=== PATIENT | female | born 1955 | race Caucasian/White ===

== ENCOUNTER 2021-04-16 11:11 | Inpatient (IN) ==
[2021-04-16] MEDS ORDERED: SODIUM CHLORIDE 0.9% 1000ML 1,000 ML IV ONE (12:21)
[2021-04-16] MEDS ORDERED: HYDROcodone/HOMATROPINE SYRUP 5MG/1.5MG 5ML UDP PO STA ×2 (12:21→14:26)
--- NOTE | 2021-04-16 12:24 | Emergency Department Note ---
Impression & Plan COVID-19, Persistent cough, Adult failure to thrive, Abnormal weight loss, Abnormal ECG ED Provider Note Name: ZACHARY ARROYO Age: 65 Sex: F Arrives Via: Walk-In Informant: Patient, ED Provider: Jeyson Allen MD Chief Complaint: Weakness Impression: As per impressions above Medical Decision Makin-year-old female with a history of follicular lymphoma and a mass on her stomach who was on chemotherapy until the end of February. She developed Covid at the beginning of March and was ill for the last 4 weeks. She did try a round of steroids and inhaler without improvement. She has been having worsening weakness to the point of inability to ambulate around her house. She has 15 pounds weight loss in the last 2 weeks. She looks dehydrated and quite weak on arrival. EKG with diffuse T wave inversions and some ST depressions. T here is also a right bundle branch block. Unable to tell if this is new or not. Fortunately troponin is negative thus is unlikely an acute myocarditis. She has a recent Covid infection, known cancer, and a brother with DVTs thus it was felt CT PE study was indicated without waiting on dimer. CT reveals diffuse viral infiltrates without PE. Patient was given 1 L IV fluid and some Hycodan which she does appear improved with but is still too weak to get up and move around. Cough did start coming back this further Hycodan given given the persistent cough I furthermore opted to give her a dose of Decadron Sami note that she is not hypoxic at this time. Labs are unremarkable and patient is stable. Patient is unfortunately too weak to go home at this time and given current findings I think it is reasonable of the hospitalist evaluate her for further evaluation and management. Prior Medical Record and Triage/Nursing Notes reviewed by Me Additional history obtained from and chart Differentials:Infection, dehydration, metabolic abnormality, hypo/hyperglycemia, electrolyte disturbance, anemia, hypoxia, cardiac sources, intracerebral event, toxicologic, neurologic, as well as other pathologies. Vital Signs: reviewed and remarkable for mild hypotension Interventions: 1 L normal saline IV, Hycodan 5 mL p.o. x2, Decadron 10 mg IV Labs:Reviewed and remarkable for no significant abnormalities Imaging:CT PE study of the chest reveals diffuse viral findings, no PE, no dissection see report of radiologist as below EKG:Per My Interpretation: Indication shortness of breath: NSR 84 bpm, qtc 418. No Ectopy. No Ischemia. No previous for comparison. Consults:hospitalist Plan: Disposition:Hospitalization. Condition: fair History of Present Illness:65-year-old female with known follicular lymphoma and a mass on her stomach arrives for evaluation of generalized illness. Patient notes she was diagnosed with COVID on March 22 and after oh 2-week. Was started on a course of steroids and an inhaler. She notes that she has had persistent shortness of breath, weakness, fatigue over the last month without i mprovement with medications. Over the last few days patient has gotten to the point where she is so weak she cannot even get around the house frequently during falls. She has lost up to 15 pounds in the last few days/weeks as well. She notes she cannot accomplish anything at home and just feels too tired. Any exertion makes symptoms worse, rest seems to make them slightly better. She denies any syncope, chest pain, headache, neck pain, back pain, abdominal pain, nausea/vomiting or other acute findings/symptoms. She denies any recent swelling in her legs nor calf pain. Her notes that she has been severely weak and just cannot manage to do well at home right now. ROS: See above HPI for pertinent positives & negatives. A total of 10 systems reviewed and were otherwise negative. Past Medical History:See Below Past Surgical History:See Below Family History:See Below Social History:See Below Home Medications:See Below Allergies:See Below Vitals:Blood Pressure: 123/50, Pulse 60, RR 20, T 36.8C, O2 94% on RA Physical Exam: GENERAL: Patient is tired/unwell/dehydrated appearing and in mild distress. EYES: No scleral icterus, unremarkable pupils. ENT: Mucous membranes dry, no nasal congestion. NECK: No masses appreciated, nomeningismus, trachea is midline. RESPIRATORY: dyspnea with diffuse crackles all lung fileds CARDIOVASCULAR: Regular rate and rhythm.No murmurs, rubs, gallops appreciated. GASTROINTESTINAL: Abdomen soft, non-tender, no peritonitis.Bowel sounds positive.No masses appreciated. BACK: No midline tenderness, no CVA tenderness EXTREMITIES: Normal motion all extremities, no cyanosis, no edema. NEUROLOGIC: Alert and oriented, no acute motor or sensory deficits, no focal weakness, cranial nerves grossly intact. SKIN: No rash, no jaundice, no diaphoresis. PSYCH: Appropriate GCS: 15 ED Course: Times/Reassessments: Patient appears moderately better with some IV fluids though still quite weak. Her cough improves with Hycodan. Jeyson Allen MD Past Med/Surg History Medical History Anxiety B-cell lymphoma of intra-abdominal lymph nodes Follicular lymphoma History of colon polyps Migraine Osteoarthritis Port-A-Cath in place (02/24/19) Insertion of Infusaport Left Internal Jugular Dr. De La Torre 02/24/19 Surgical History History of colonoscopy History of D&C History of esophagogastroduodenoscopy (EGD) History of tonsillectomy History of tubal ligation History of wisdom tooth extraction Hx of lymph node biopsy x 2 Family History Father Hypertension Heart disease Mother Heart disease Grandmother (Maternal) Colorectal cancer Grandfather (Maternal) Colorectal cancer Social History Smoking Status: Smoker, status unknown Second Hand Exposure: Yes (as a child); Hx Alcohol Use: No Hx Substance Use: No Preferred Language: Telugu Communication Ability: Effective Land Appraiser Required: No Beliefs That Will Affect Care: None marital status: Current Living Situation: Spouse current occupational status: employed 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 Other Information That Helps Us Care for You: No Feels Safe at Home: Yes Safety Concerns: Feels Safe At This Time Assistive Devices: None Allergies Allergies Allergy/AdvReac Type Severity Reaction Status Date / Time No Known Allergies Allergy Verified 04/16/21 12:29 Home Meds Home Medications Medication Instructions Recorded Confirmed clonazepam 0.5 mg tablet (Klonopin) 0.5 mg PO QPM tab 01/06/19 04/16/21 meloxicam submicronized 10 mg 10 mg PO QAM 01/06/19 04/16/21 capsule (Vivlodex) eletriptan 20 mg tablet (Relpax) 20 mg PO Q2H PRN 01/07/19 04/16/21 sumatriptan succinate 25 mg tablet 25 mg PO Q2H PRN 01/07/19 04/16/21 niacin 100 mg tablet 100 mg PO DAILY 02/24/19 04/16/21 cholecalciferol (vitamin D3) 25 25 mcg PO QAM 09/27/19 04/16/21 mcg (1,000 unit) tablet (Vitamin D3) loratadine 10 mg tablet 10 mg PO QAM 09/27/19 04/16/21 multivitamin 1 tab PO QAM 09/27/19 04/16/21 fluoxetine 40 mg capsule 40 mg PO QAM 04/16/21 04/16/21 Results & Data (ED) Vital Signs Vital Signs - 24 hr 04/16/21 15:14 04/16/21 15:33 Pulse Rate [Apical] 75 73 Pulse Rhythm [Apical] Regular Regular Respiratory Rate 17 15 Respiratory Depth Normal Normal Blood Pressure [Left Arm] 100/70 109/63 Blood Pressure Mean [Left Arm] 80 78 Pulse Oximetry 99 93 Oxygen Delivery Method Room Air Nasal Cannula Oxygen Flow Rate 2 Laboratory Data Result diagrams: 04/17/21 05:44 04/17/21 05:44 Lab Results 04/16/21 04/16/21 04/16/21 Range/Units 11:50 11:50 11:50 WBC 3.26 L (4.8-10.8) K/uL RBC 3.44 L (4.2-5.4) M/uL Hgb 11.9 L (12.0-16.0) g/dL Hct 33.5 L (37-47) % MCV 97.4 (80-100) fL MCH 34.6 H (25-34) pg MCHC 35.5 (32-36) g/dL RDW Std Deviation 40.9 (36.4-46.3) fL RDW Coeff of [place] 11.5 (11.5-14.5) % Plt Count 142 (130-400) K/uL MPV 9.6 (7.4-10.4) fL Immature Gran % (Auto) 0.3 % Neut % (Auto) 86.8 % Lymph % (Auto) 7.1 % Robertson % (Auto) 5.8 % Eos % (Auto) 0.0 % Baso % (Auto) 0.0 % Neut # (Auto) 2.83 (1.4-6.5) K/uL Lymph # (Auto) 0.23 L (1.2-3.4) K/uL Robertson # (Auto) 0.19 (0.11-0.59) K/uL Eos # (Auto) 0.00 (0-0.5) K/uL Baso # (Auto) 0.00 (0-0.2) K/uL Immature Gran # (Auto) 0.01 (0.00-0.02) K/uL Sodium 133 L (136-145) mmol/L Potassium 3.6 (3.5-5.1) mmol/L Chloride 99 (98-107) mmol/L Carbon Dioxide 26 (21-32) mmol/L Anion Gap 8 (3-11) BUN 16 (6-23) mg/dl Creatinine 0.84 (0.6-1.2) mg/dl Est Cr Clr Drug Dosing 56.0 ml/min Est GFR ( Amer) 85.1 ml/min Est GFR (Non-Af Amer) 73.4 ml/min BUN/Creatinine Ratio 19.0 (10-20) Glucose 94 (70-99(Fasting)) mg/dl Calcium 9.1 (8.5-10.1) mg/dl Magnesium 2.0 (1.7-2.4) mg/dl Total Bilirubin 0.4 (0.2-1.0) mg/dl Direct Bilirubin 0.1 (0-0.2) mg/dl AST 27 (13-39) U/L ALT 28 (7-52) U/L Alkaline Phosphatase 55 (34-104) U/L Total Creatine Kinase 15 L (26-192) U/L Troponin I < 0.03 (0-0.04) ng/ml C-Reactive Protein (0-0.5) mg/dl B-Natriuretic Peptide (0-100) pg/ml Total Protein 6.2 (6.0-8.3) gm/dl Albumin 3.5 (3.4-5.0) gm/dl Procalcitonin (0-0.5) ng/ml TSH 0.977 (0.300-4.500) uIu/ml 04/16/21 04/16/21 04/16/21 Range/Units 11:50 11:50 15:40 WBC (4.8-10.8) K/uL RBC (4.2-5.4) M/uL Hgb (12.0-16.0) g/dL Hct (37-47) % MCV (80-100) fL MCH (25-34) pg MCHC (32-36) g/dL RDW Std Deviation (36.4-46.3) fL RDW Coeff of [place] (11.5-14.5) % Plt Count (130-400) K/uL MPV (7.4-10.4) fL Immature Gran % (Auto) % Neut % (Auto) % Lymph % (Auto) % Robertson % (Auto) % Eos % (Auto) % Baso % (Auto) % Neut # (Auto) (1.4-6.5) K/uL Lymph # (Auto) (1.2-3.4) K/uL Robertson # (Auto) (0.11-0.59) K/uL Eos # (Auto) (0-0.5) K/uL Baso # (Auto) (0-0.2) K/uL Immature Gran # (Auto) (0.00-0.02) K/uL Sodium (136-145) mmol/L Potassium (3.5-5.1) mmol/L Chloride (98-107) mmol/L Carbon Dioxide (21-32) mmol/L Anion Gap (3-11) BUN (6-23) mg/dl Creatinine (0.6-1.2) mg/dl Est Cr Clr Drug Dosing ml/min Est GFR ( Amer) ml/min Est GFR (Non-Af Amer) ml/min BUN/Creatinine Ratio (10-20) Glucose (70-99(Fasting)) mg/dl Calcium (8.5-10.1) mg/dl Magnesium (1.7-2.4) mg/dl Total Bilirubin (0.2-1.0) mg/dl Direct Bilirubin (0-0.2) mg/dl AST (13-39) U/L ALT (7-52) U/L Alkaline Phosphatase (34-104) U/L Total Creatine Kinase (26-192) U/L Troponin I (0-0.04) ng/ml C-Reactive Protein 3.65 H (0-0.5) mg/dl B-Natriuretic Peptide 45 (0-100) pg/ml Total Protein (6.0-8.3) gm/dl Albumin (3.4-5.0) gm/dl Procalcitonin < 0.05 (0-0.5) ng/ml TSH (0.300-4.500) uIu/ml Administered Medications Enoxaparin Sodium (Enoxaparin Inj 40 Mg/0.4 Ml Syr) 40 mg SQ Q24H [facility] Stop: 05/16/21 19:59 Last Admin: 04/16/21 20:59 Dose: 40 mg Documented by: [id number] Fluoxetine HCl (Fluoxetine Hcl 20 Mg Cap) 40 mg PO [facility] Stop: 05/17/21 08:59 Last Admin: 04/17/21 08:41 Dose: 40 mg Documented by: [id number] Loratadine (Loratadine 10 Mg Tab) 10 mg PO [facility] Stop: 05/17/21 08:59 Last Admin: 04/17/21 08:41 Dose: 10 mg Documented by: [id number] Meloxicam (Meloxicam 7.5 Mg Tab) 7.5 mg PO [facility] Stop: 05/17/21 08:59 Last Admin: 04/17/21 11:09 Dose: 7.5 mg Documented by: [id number] Vitamin D (Cholecalciferol 1,000 Units 25 Mcg Tab) 1,000 units PO [facility] Stop: 05/17/21 08:59 Last Admin: 04/17/21 08:41 Dose: 1,000 units Documented by: [id number] Discontinued Medications Dexamethasone Sodium Phosphate (DexamethasonePf 10 Mg/Ml Vial) 10 mg IV NOW ONE Stop: 04/16/21 14:44 Last Admin: 04/16/21 14:59 Dose: 10 mg Documented by: [id number] Hydrocodone Bit/Homatropine Methylb (Hydrocodone/Homatropine Syrup 5mg/1.5mg 5ml Udp) 5 ml PO NOW [facility] Stop: 04/16/21 12:22 Last Admin: 04/16/21 12:35 Dose: 5 ml Documented by: [id number] Hydrocodone Bit/Homatropine Methylb (Hydrocodone/Homatropine Syrup 5mg/1.5mg 5ml Udp) 5 ml PO NOW STA Stop: 04/16/21 14:27 Last Admin: 04/16/21 14:40 Dose: 5 ml Documented by: [id number] Sodium Chloride (Nss 1000ml) 1,000 mls @ 999 mls/hr IV .Q1H1M ONE Stop: 04/16/21 13:21 Last Infusion: 04/16/21 14:08 Dose: 0 mls/hr Documented by: [id number] Admin: 04/16/21 12:35 Dose: 999 mls/hr Documented by: [id number] Ioversol (Optiray 320 125ml) 120 ml IV ONCE ONE Stop: 04/16/21 14:06 Last Admin: 04/16/21 13:59 Dose: 120 ml Documented by: [id number] Ioversol (Optiray 320 100ml) 100 ml IV ONCE ONE Stop: 04/17/21 00:10 Last Admin: 04/17/21 00:09 Dose: 93 ml Documented by: [id number] Imaging Data Radiologist's Impression: Chest CTA 04/16/21 12:21 CT ANGIOGRAPHY OF THE CHEST, PULMONARY EMBOLUS PROTOCOL CLINICAL HISTORY: PE eval. post covid. Lymphoma, +Fam History DVT COMPARISON STUDY: Chest CT December 20, 2020. TECHNIQUE: Following IV administration of 120 mL of Optiray, helical axial images of the chest were obtained utilizing the pulmonary embolus protocol. Maximal intensity projections and sagittal and coronal reformats were viewed on an independent 3D workstation. IV contrast was administered without complication. Automated exposure control was utilized for the study. A dose lowering technique was utilized adhering to the principles of ALARA. CT DOSE: 233.82 mGycm FINDINGS: Left internal jugular [id number] is in place. No pulmonary emboli are identified. There is no pericardial effusion. Size of the heart is at the upper limits of normal. No enlarged axillary, mediastinal or hilar lymph nodes a re present. Central airways are patent. No pneumothorax or pleural effusion is noted. Moderate multifocal groundglass opacities throughout the lungs are present. Visualized portions of the upper abdomen are unremarkable. Bony thorax is unremarkable as well. IMPRESSION: 1. No pulmonary emboli identified. 2. Moderate multifocal groundglass opacities throughout the lungs consistent with viral pneumonia. 3. No thoracic lymphadenopathy. ACT 112: Negative or not required by law. Electronically signed by: Guilherme Garcia M.D. 04/16/2021 2:25 PM Discharge Plan Visit Data Chief Complaint: Respiratory Problems Stated Complaint: COVID FOR WEEKS, STEROIDS NOT HELPING, SOB ED Provider: Jeyson Allen Discharge Problem: COVID-19, Persistent cough, Adult failure to thrive, Abnormal weight loss, Abnormal ECG Patient Disposition: Admitted As Inpatient Discharge Instructions Interventions: ED Discharge Assessment Last Done: 04/16/21 17:27
[2021-04-16 12:30] LABS: Hematocrit (blood only) 33.5 % (37-47); Hemoglobin 11.9 g/dL (12.0-16.0); Immature Granulocytes # (auto) 0.01 K/uL (0.00-0.02); Immature Granulocytes % (auto) 0.3 %; Lymphocytes # (auto) 0.23 K/uL (1.2-3.4); Lymphocytes % (auto) 7.1 %; Mean Corpuscular Hemoglobin 34.6 pg (25-34); Mean Corpuscular Hgb Conc 35.5 g/dL (32-36); Mean Corpuscular Volume 97.4 fL (80-100); Mean Platelet Volume 9.6 fL (7.4-10.4); Monocytes # (auto) 0.19 K/uL (0.11-0.59); Monocytes % (auto) 5.8 %; Neutrophils # (auto) 2.83 K/uL (1.4-6.5); Neutrophils % (auto) 86.8 %; Platelet Count 142 K/uL (130-400); RDW Coefficient of Variation 11.5 % (11.5-14.5); RDW Standard Deviation 40.9 fL (36.4-46.3); Red Blood Count 3.44 M/uL (4.2-5.4); White Blood Count 3.26 K/uL (4.8-10.8)
[2021-04-16 12:54] LABS: Troponin I < 0.03 ng/ml (0-0.04)
[2021-04-16 13:03] LABS: Alanine Aminotransferase 28 U/L (7-52); Albumin Level 3.5 gm/dl (3.4-5.0); Alkaline Phosphatase 55 U/L (34-104); Anion Gap 8 (3-11); Aspartate Aminotransferase 27 U/L (13-39); Bilirubin Direct 0.1 mg/dl (0-0.2); Bilirubin,Total 0.4 mg/dl (0.2-1.0); Blood Urea Nitrogen 16 mg/dl (6-23); Calcium 9.1 mg/dl (8.5-10.1); Carbon Dioxide 26 mmol/L (21-32); Chloride 99 mmol/L (98-107); Creatine Kinase 15 U/L (26-192); Est GFR (African American) 85.1 ml/min; Est GFR (Non-African American) 73.4 ml/min; Glucose 94 mg/dl (70-99(Fasting)); Potassium 3.6 mmol/L (3.5-5.1); Sodium 133 mmol/L (136-145); Total Protein 6.2 gm/dl (6.0-8.3)
--- NOTE | 2021-04-16 13:11 | Electrocardiogram Report ---
Test Reason : Blood Pressure : / mmHG Vent. Rate : 084 BPM Atrial Rate : 084 BPM P-R Int : 128 ms QRS Dur : 094 ms QT Int : 354 ms P-R-T Axes : 074 075 -46 degrees QTc Int : 418 ms Normal sinus rhythm Incomplete right bundle branch block T wave abnormality, consider inferolateral ischemia Abnormal ECG No previous ECGs available Confirmed by José Manuel Oliva ([id number]) on 04/16/2021 1:10:53 PM Referred By: Confirmed By:José Manuel Oliva
[2021-04-16] MEDS ORDERED: OPTIRAY 320 125ml IV ONE (14:05)
--- NOTE | 2021-04-16 14:26 | CT Scan Report ---
CT ANGIOGRAPHY OF THE CHEST, PULMONARY EMBOLUS PROTOCOL CLINICAL HISTORY: PE eval. post covid. Lymphoma, +Fam History DVT COMPARISON STUDY: Chest CT December 20, 2020. TECHNIQUE: Following IV administration of 120 mL of Optiray, helical axial images of the chest were o btained utilizing the pulmonary embolus protocol. Maximal intensity projections and sagittal and cor onal reformats were viewed on an independent 3D workstation. IV contrast was administered without co mplication. Automated exposure control was utilized for the study. A dose lowering technique was ut ilized adhering to the principles of ALARA. CT DOSE: 233.82 mGycm FINDINGS: Left internal jugular [id number] is in place. No pulmonary emboli are identified. There is no pericardial effusion. Size of the heart is at the upper limits of normal. No enlarged axillary , mediastinal or hilar lymph nodes are present. Central airways are patent. No pneumothorax or pleura l effusion is noted. Moderate multifocal groundglass opacities throughout the lungs are present. Visu alized portions of the upper abdomen are unremarkable. Bony thorax is unremarkable as well. IMPRESSION: 1. No pulmonary emboli identified. 2. Moderate multifocal groundglass opacities throughout the lungs consistent with viral pneumonia. 3. No thoracic lymphadenopathy. ACT 112: Negative or not required by law. Electronically signed by: Guilherme Garcia M.D. 04/16/2021 2:25 PM
[2021-04-16] MEDS ORDERED: dexAMETHasone**PF** 10 MG/ML VIAL IV ONE (14:43)
--- NOTE | 2021-04-16 15:04 | History & Physical Report ---
Date of Service April 16, 2021 History of Present Illness Primary Care Provider: Jesús Love DO Allergies Allergy/AdvReac Type Severity Reaction Status Date / Time No Known Allergies Allergy Verified 04/16/21 12:29 Home Medications Medication Instructions Recorded Confirmed Type clonazepam 0.5 mg tablet (Klonopin) 0.5 mg PO QPM tab 01/06/19 04/16/21 History meloxicam submicronized 10 mg 10 mg PO QAM 01/06/19 04/16/21 History capsule (Vivlodex) eletriptan 20 mg tablet (Relpax) 20 mg PO Q2H PRN 01/07/19 04/16/21 History sumatriptan succinate 25 mg tablet 25 mg PO Q2H PRN 01/07/19 04/16/21 History niacin 100 mg tablet 100 mg PO DAILY 02/24/19 04/16/21 History cholecalciferol (vitamin D3) 25 25 mcg PO QAM 09/27/19 04/16/21 History mcg (1,000 unit) tablet (Vitamin D3) loratadine 10 mg tablet 10 mg PO QAM 09/27/19 04/16/21 History multivitamin 1 tab PO QAM 09/27/19 04/16/21 History fluoxetine 40 mg capsule 40 mg PO QAM 04/16/21 04/16/21 History Past Med/Surg History Medical History (Updated 04/16/21 @ 14:44 by Jeyson Allen MD) Anxiety B-cell lymphoma of intra-abdominal lymph nodes Follicular lymphoma History of colon polyps Migraine Osteoarthritis Port-A-Cath in place (02/24/19) Insertion of Infusaport Left Internal Jugular Dr. De La Torre 02/24/19 Surgical History History of colonoscopy History of D&C History of esophagogastroduodenoscopy (EGD) History of tonsillectomy History of tubal ligation History of wisdom tooth extraction Hx of lymph node biopsy x 2 Family History Father Hypertension Heart disease Mother Heart disease Grandmother (Maternal) Colorectal cancer Grandfather (Maternal) Colorectal cancer Social History Smoking Status: Never smoker Second Hand Exposure: Yes (as a child); Hx Alcohol Use: Yes Alcohol type: hard liquor Hx Substance Use: No Preferred Language: Mohawk Communication Ability: Effective Health Plan Advisor Required: No Beliefs That Will Affect Care: None marital status: Current Living Situation: Spouse current occupational status: employed 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
--- NOTE | 2021-04-16 15:21 | History & Physical Report ---
Date of Service April 16, 2021 Assessment & Plan (1) Persistent cough: Plan: -Diagnosed with COVID-19 on 03/22/21 on PCR test, has had persistent cough, weakness, fatigue, and lack of appetite since then with 15 lb weight loss. Prescribed 10 day course of inhaler and steroids on 04/05 which she completed yesterday, reports minimal alleviation of symptoms. Chest CTA showed moderate multifocal ground-glass opacities throughout the lungs consistent with viral pneumonia, as well as heart size at upper limit of normal. -Afebrile, no elevated WBC count, although pt is currently undergoing chemotherapy for lymphoma. -Received hydrocodone 5ml x2, dexamethasone 10 mg, and 1 L NS in ED with some improvement. -CRP 3.65, pro blayne < 0.05 -COVID + in ED, flu and RSV negative. -Blood cultures, sputum culture pending. -Echo tomorrow. -Will continue Decadron 6 mg IV daily. (2) COVID-19: Plan: -As above. (3) Abnormal ECG: Plan: -EKG showed RBBB, T wave inversions suggestive of inferolateral ischemia. No prior EKGs available for comparison, currently trying to obtain outside records. Patient does not complain of any chest pain/tightness or palpitations at this time. Inital troponin negative. Electrolytes normal. (4) B-cell lymphoma of intra-abdominal lymph nodes: Plan: -Currently on maintenance therapy w/ rituximab every 3 months. Plan: -Admit inpatient to [facility] with telemetry. -SCDs and Lovenox ordered for DVT ppx -Full code. History of Present Illness Chief Complaint: generalized weakness Primary Care Provider: Jesús Love DO Patient is a 65 y/o female with PMH of follicular lymphoma diagnosed in 2019 who presents today with generalized weakness over the past three weeks. Patient was diagnosed with COVID-19 on 03/22/21 and since then has had generalized fatigue, SOB, and a persistent cough which has made it very difficult for her to take care of herself at home. She reports a 15 lb weight loss due to lack of appetite. She did see her PCP on 04/05 who prescribed her an inhaler and a course of steroids for 10 days. She said she finished these Friday, 04/14 and had minimal relief of symptoms. Does not complain of fever/chills, headache, nausea, vomiting, abdominal pain, diarrhea, or urinary symptoms such as increased frequency, urgency, dysuria, or hematuria. Patient does follow with [facility], last chemo treatment was 03/18/21. She is currently receiving maintenance therapy with rituximab Q3 months. In ED, vital signs are stable, initially on RA with SaO2 in mid 90s, had gone down to 87% and was placed on 2L NC. Labs remarkable for WBC 3.26, Na 133, otherwise CBC and BMP within normal limits. Initial troponin negative. EKG significant for RBBB as well as some T wave abnormalities possibly suggestive of inferolateral ischemia, no previous EKGs available for comparison. Chest CTA showed moderate multifocal ground glass opacities throughout the lungs consistent with viral pneumonia, no pulmonary emboli or thoracic lymphadenopathy noted. Patient received 1L NS, hydrocodone, and dexamethasone in ED. Hospitalist service was consulted for further evaluation and admission. Allergies Allergy/AdvReac Type Severity Reaction Status Date / Time No Known Allergies Allergy Verified 04/16/21 12:29 Home Medications Medication Instructions Recorded Confirmed Type clonazepam 0.5 mg tablet (Klonopin) 0.5 mg PO QPM tab 01/06/19 04/16/21 History meloxicam submicronized 10 mg 10 mg PO QAM 01/06/19 04/16/21 History capsule (Vivlodex) eletriptan 20 mg tablet (Relpax) 20 mg PO Q2H PRN 01/07/19 04/16/21 History sumatriptan succinate 25 mg tablet 25 mg PO Q2H PRN 01/07/19 04/16/21 History niacin 100 mg tablet 100 mg PO DAILY 02/24/19 04/16/21 History cholecalciferol (vitamin D3) 25 25 mcg PO QAM 09/27/19 04/16/21 History mcg (1,000 unit) tablet (Vitamin D3) loratadine 10 mg tablet 10 mg PO QAM 09/27/19 04/16/21 History multivitamin 1 tab PO QAM 09/27/19 04/16/21 History fluoxetine 40 mg capsule 40 mg PO QAM 04/16/21 04/16/21 History Past Med/Surg History Medical History Anxiety B-cell lymphoma of intra-abdominal lymph nodes Follicular lymphoma History of colon polyps Migraine Osteoarthritis Port-A-Cath in place (02/24/19) Insertion of Infusaport Left Internal Jugular Dr. 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: No Beliefs That Will Affect Care: None marital status: Current Living Situation: Spouse current occupational status: employed 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 Other Information That Helps Us Care for You: No Feels Safe at Home: Yes Safety Concerns: Feels Safe At This Time Assistive Devices: Glasses and Oxygen - Continuous Review of Systems Review of Systems: Review of systems: Constitutional: reports generalized weakness, fatigue, lack of appetite with 15 lb weight loss over 2 weeks; No fever, sweats or chills Eyes: No diplopia, no worsening or blurred vision ENT: normal hearing, no trouble swallowing Respiratory: reports persistent cough with some sputum, mild dyspnea on ex ertion Cardiovascular: No chest pain, tightness or palpitations Abdomen: No pain, nausea, vomiting, diarrhea or constipation Musculoskeletal: No joint pain, calf pain, swelling Neurologic: No weakness, numbness/tingling, or balance problems Psychiatric: No anxiety or depression Skin: No rash or itch Physical Exam Physical Exam: General: patient appears generaly weak, however is awake, alert, no apparent distress Head: Normocephalic, atraumatic ENT: PERRL, EOMI, no pharyngeal exudate, mucous membranes moist Chest: Clear to auscultation, on room air, no adventitious breath sounds Cardiac: Regular rate and rhythm, no murmur, no JVD, normal peripheral pulses, good capillary refill Abdominal: NABS x 4 quadrants, soft, nontender to palpation, no rebound, guarding or tenderness Extremities: Normal inspection, no peripheral edema or erythema, calfs nontender to palpation Psych: Normal mood and affect Neuro: AAO x 3, strength intact bilaterally and rated 5/5, no motor deficits, speech is clear, no peripheral sensory deficits Skin: no rash or erythema Results & Data Results & Data ([facility]) Vital Signs (Past 12 Hours) Vital Signs Temp Pulse Pulse Resp BP BP Pulse Ox 04/16/21 15:14 75 17 100/70 99 04/16/21 12:11 95 04/16/21 11:56 84 17 99/63 L 95 04/16/21 11:16 36.7 C 101 H 20 100/62 92 Laboratory Results Abnormal lab results 04/16/21 04/16/21 Range/Units 11:50 11:50 WBC 3.26 L (4.8-10.8) K/uL RBC 3.44 L (4.2-5.4) M/uL Hgb 11.9 L (12.0-16.0) g/dL Hct 33.5 L (37-47) % MCH 34.6 H (25-34) pg Lymph # (Auto) 0.23 L (1.2-3.4) K/uL Sodium 133 L (136-145) mmol/L Total Creatine Kinase 15 L (26-192) U/L Diagnostic Findings Chest CTA 04/16/21 12:21 CT ANGIOGRAPHY OF THE CHEST, PULMONARY EMBOLUS PROTOCOL CLINICAL HISTORY: PE eval. post covid. Lymphoma, +Fam History DVT COMPARISON STUDY: Chest CT December 20, 2020. TECHNIQUE: Following IV administration of 120 mL of Optiray, helical axial images of the chest were obtained utilizing the pulmonary embolus protocol. Maximal intensity projections and sagittal and coronal reformats were viewed on an independent 3D workstation. IV contrast was administered without complication. Automated exposure control was utilized for the study. A dose lowering technique was utilized adhering to the principles of ALARA. CT DOSE: 233.82 mGycm FINDINGS: Left internal jugular [id number] is in place. No pulmonary emboli are identified. There is no pericardial effusion. Size of the heart is at the upper limits of normal. No enlarged axillary, mediastinal or hilar lymph nodes are present. Central airways are patent. No pneumothorax or pleural effusion is noted. Moderate multifocal groundglass opacities throughout the lungs are present. Visualized portions of the upper abdomen are unremarkable. Bony thorax is unremarkable as well. IMPRESSION: 1. No pulmonary emboli identified. 2. Moderate multifocal groundglass opacities throughout the lungs consistent with viral pneumonia. 3. No thoracic lymphadenopathy. ECG Additional Comments: Normal sinus rhythm Incomplete right bundle branch block T wave abnormality, consider inferolateral ischemia Abnormal ECG No previous ECGs available Code Status & VTE Plan Code Status Full Code. Supervising Physician Co-Signing Physician Notes I personally saw and examined the patient. I verified all ball points and agree with Estela Cervantes PA-C with the following exceptions and/or additions: 65 year old female admission for post COVID generalized weakness and loss of appetite. No significant worsening but generally not getting better. She has already finished 10 days of dexamethasone prescribed by her primary care provider and initial test through [email or web address] was positive on Mar 22 which was day of symptom onset O/E Frail appearing, Chest CTAB, poor inspiratory effort, HS 1+2, RRR, no murmurs, Abdomen SNT A/P Long COVID - despite mild O2 requirement and CT findings her symptoms are mainly weakness and appetite. No dysphagia, odynophagia or abdominal pain. Since she already has a course of steroids (dexamethasone 6mg PO for 10 days), lack of previous response and CRP is not markedly raised I doubt she'll have any benefit to ongoing steroids and likely risk with increased risk of steroid myopathy. No further steroids recommended. PT/OT. B cell NHL - night sweats, weight loss, loss of appetite (potential B symptoms); I suspect these are COVID induced however will get CT A/P with IV and oral contrast to compare to prior scans for lymphadenopathy to rule this out as a cause. No significant chest pain or shortness of breath but agree with continued cardiac workup given EKG changes but suspect this is more strain related to COVID-19 inflammation in her lungs. TTE pending. PG Care Time/CCT Total # of Minutes Spent Total Time Spent with Patient: Total time spent is greater than 50% in coordination of care (as documented) at patient's floor/unit and/or counseling patient: Coding Level of Care Code 14060 Initial Inpt Care Lvl 3 Diagnoses Persistent cough R05.3 COVID-19 U07.1 Abnormal ECG R94.31 B-cell lymphoma of intra-abdominal lymph nodes C85.13
[2021-04-16 16:50] LABS: Influenza A virus by PCR Negative (Neg); Influenza B virus by PCR Negative (Neg); RSV by PCR Negative (Neg)
[2021-04-16 16:57] LABS: SARS CoV2 RNA(COVID-19) InHosp POSITIVE (Negative)
[2021-04-16] MEDS ORDERED: ONDANSETRON INJ 2 MG/ML 2 ML VIAL IV PRN (17:27)
[2021-04-16] MEDS ORDERED: SUMAtriptan succinate 25 MG TAB PO PRN (17:27)
[2021-04-16] MEDS ORDERED: POLYETHYLENE (MIRALAX) 17 GM PACK PO PRN (17:27)
[2021-04-16] MEDS: ENOXAPARIN INJ 40 MG/0.4 ML SYR SQ SCH (20:59)
[2021-04-17] MEDS ORDERED: OPTIRAY 320 100ml IV ONE (00:09)
[2021-04-17 06:11] LABS: Basophils # (auto) 0.01 K/uL (0-0.2); Basophils % (auto) 0.3 %; Hematocrit (blood only) 31.8 % (37-47); Hemoglobin 11.1 g/dL (12.0-16.0); Immature Granulocytes # (auto) 0.01 K/uL (0.00-0.02); Immature Granulocytes % (auto) 0.3 %; Lymphocytes # (auto) 0.27 K/uL (1.2-3.4); Lymphocytes % (auto) 8.7 %; Mean Corpuscular Hemoglobin 33.9 pg (25-34); Mean Corpuscular Hgb Conc 34.9 g/dL (32-36); Mean Corpuscular Volume 97.2 fL (80-100); Mean Platelet Volume 9.6 fL (7.4-10.4); Monocytes % (auto) 6.5 %; Neutrophils # (auto) 2.61 K/uL (1.4-6.5); Neutrophils % (auto) 84.2 %; Platelet Count 140 K/uL (130-400); RDW Coefficient of Variation 11.6 % (11.5-14.5); RDW Standard Deviation 41.4 fL (36.4-46.3); Red Blood Count 3.27 M/uL (4.2-5.4)
[2021-04-17 06:35] LABS: BUN Creatinine Ratio 15.2 (10-20); Calcium 9.1 mg/dl (8.5-10.1); Creatinine Clr Calc Pharmacy 71.2 ml/min; Est GFR (African American) 108.2 ml/min; Est GFR (Non-African American) 93.4 ml/min; Potassium 3.9 mmol/L (3.5-5.1)
--- NOTE | 2021-04-17 08:02 | CT Scan Report ---
ABDOMEN AND PELVIS CT WITH IV AND ORAL CONTRAST CT DOSE: 281.46 mGy.cm HISTORY: History of B-cell lymphoma. B cell symptoms with night sweats and decreased appetite TECHNIQUE: Multiaxial CT images of the abdomen and pelvis were performed following the use of intrave nous and oral contrast. A dose lowering technique was utilized adhering to the principles of ALARA. COMPARISON STUDY: Abdomen and pelvis CT 12/20/2020. FINDINGS: Patchy and linear multifocal airspace opacities within the lung bases. This likely represen ts a viral pneumonia and is better appreciated on the same day chest CTA. No pneumoperitoneum. No pne umatosis. No suspicious lytic or blastic osseous lesions. The liver, gallbladder, pancreas, spleen, a drenal glands, and kidneys are unremarkable. No hydronephrosis. The bladder is filled with contrast f rom the prior CT examination. No bladder wall thickening. The uterus and ovaries are unremarkable. No pelvic free fluid. Normal caliber abdominal aorta. The main portal vein is patent. Low-density soft tissue lesions within the mesenteric root on image 174 and within the right perirectal soft tissues h ave slightly improved. This suggests treated disease. No new soft tissue masses or lymphadenopathy id entified. Minimal fat stranding adjacent to the celiac artery is also stable. No bowel wall thickenin g or obstruction. Moderate stool within the colon. Normal appendix.. IMPRESSION: 1. Slight decrease in size of the low-attenuation lesions within the mesenteric root and right perire ctal soft tissue suggestive of treated disease. 2. No new soft tissue lesions or lymphadenopathy identified within the abdomen or pelvis. 3. Patchy bibasilar airspace opacities likely represents a viral pneumonia. This is better appreciate d on the same day chest CTA. 4. Normal spleen. 5. No bowel wall thickening or obstruction. ACT 112: Negative or not required by law. Electronically signed by: Terrell Flores M.D. 04/17/2021 8:01 AM
[2021-04-17] MEDS: FLUoxetine HCL 20 MG CAP PO SCH (08:41)
[2021-04-17] MEDS: CHOLECALCIFEROL 1,000 UNITS 25 MCG TAB PO SCH (08:41)
[2021-04-17] MEDS: LORATADINE 10 MG TAB PO SCH (08:41)
[2021-04-17] MEDS ORDERED: NIACIN 500 MG TAB PO SCH (09:00)
[2021-04-17] MEDS ORDERED: dexAMETHasone 6 MG in SYRINGE 0 ML IV SCH (09:00)
[2021-04-17] MEDS: MELOXICAM 7.5 MG TAB PO SCH (11:09)
--- NOTE | 2021-04-17 12:34 | XCELERA ---
[id number]
[2021-04-17] MEDS ORDERED: HYDROcodone/HOMATROPINE SYRUP 5MG/1.5MG 5ML UDP PO STA (14:23)
--- NOTE | 2021-04-17 14:27 | Hospitalist Progress Note ---
Date of Service April 17, 2021 Assessment & Plan (1) Acute respiratory failure with hypoxia: Plan: 2nd to COVID-19 pneumonia. She is 3-4 weeks into her illness. There does not appear to be superimposed acute CHF, bacterial superinfection, or VTE. Fungal infection/atypical infections are possible in the setting of significant immune compromise from her lymphoma & rituximab treatments but felt to be less likely. Ixna-sqg-fqqa aspergillus titers sent, and legionella urine ag is pending. Continue NC O2 to maintain O2 sats >92%. See #2 below. I suspect that she has simply had a severe case of COVID-19 pneumonia in the setting of her lymphoma. Ongoing recovery will likely continue well after discharge. Should have pulmonary f/u post-discharge. (2) Pneumonia due to COVID-19 virus: Plan: She just completed a 10-day course of dexamethasone 6mg daily as an outpatient. She also received IV dexamethasone yesterday in the ER. Her CTA chest appears to show typical COVID-19 pneumonia. Obvious fibrosis is not seen. Lobar consolidation is not seen. Procal is negative. CRP is only mildly elevated at 3. Defer on additional steroids for now. Will consult [facility] [place] [place] [facility] for any additional recommendations. Her cough is one of the worst complaints - hycodan now, then q6h prn thereafter. Cont NC O2. Good chance she will need supplemental O2 after discharge. Add incentive spirometry. Add flutter valve. Discussed additional pulmonary toilet techniques. (3) Pancytopenia: Plan: Her lymphoma is the likely cause. however, COVID-19 infection can contribute to such. TSH noted to be normal. Check B12/folate in am to be complete. Follow cbc. (4) Severe protein-calorie malnutrition: Plan: 2nd to #2. Cont supportive care. Add boost. Add MVI. (5) B-cell lymphoma of intra-abdominal lymph nodes: Plan: Currently on maintenance therapy w/ rituximab every 3 months. Follows with [facility]. [facility]-CT this admission appears to show treatment response. (6) Candidiasis of mouth and esophagus: Plan: 2nd steroids, etc. Nystatin liquid - 5cc qid swish/swallow. (7) Abnormal ECG: Plan: EKG showed RBBB and T wave inversions suggestive of inferolateral ischemia. No ischemic symptoms, however. Initial troponin negative. Echo today with preserved EF and no wall motion abnormalities. (8) DVT prophylaxis: Plan: lovenox daily Plan: was placed on speaker phone during my bedside rounds thoroughly updated PT consultation 03/22/21 was initial + test date for her COVID may be able to d/c airborne isolation will contact infection control Admission and Anticipated Discharge Date Admission Date: April 16, 2021 Subjective patient has had very poor appetite since her COVID dx in early March. she noted that her appetite today was the best it has been in some time. she continues with cough - always dry, no sputum. no dyspnea at rest. ADEN with very little activity. no chest pain. no orthopnea. no abdominal pain. tele overnight wnl. denies any h/o asthma/COPD. did smoke for about 8-9 years in early adulthood. is a smoker - does so outside their home, not indoors. no occupational exposures. no travel. Review of Systems Review of Systems: gen - no fevers, no chills cv - no chest pain pulm - no dyspnea at rest; no hemoptysis GI - no diarrhea, no vomiting HENT - mouth is dry, constant tickle in throat Physical Exam Physical Exam: gen - persistent cough, but no distress, nontoxic mouth - MM slightly dry; thrush plaques tongue and scattered on buccal mucosa neck - no JVD heart - RRR, s1 s2, no murmur lungs - rales R anterior chest; rales R upper posterior chest; scattered rales on left abd - soft NT ND BS+; No HSM ext - no edema, pulses 2+ b/l psych - a/o x 3 Results & Data Results & Data ([facility]) Vital Signs (Past 12 Hours) Vital Signs Temp Pulse Pulse Resp BP Pulse Ox 04/17/21 12:51 95/51 L 04/17/21 12:00 37.3 C 75 14 91/45 L 98 04/17/21 08:00 57 L 04/17/21 07:49 36.8 C 91 H 18 96/60 L 94 04/17/21 05:45 36.5 C 63 16 86/52 L 98 Laboratory Results Laboratory Results - last 24 hr 04/16/21 04/16/21 04/16/21 11:50 11:50 11:50 WBC RBC Hgb Hct MCV MCH MCHC RDW Std Deviation RDW Coeff of [place] Plt Count MPV Immature Gran % (Auto) Neut % (Auto) Lymph % (Auto) [place] % (Auto) Eos % (Auto) Baso % (Auto) Neut # (Auto) Lymph # (Auto) [place] # (Auto) Eos # (Auto) Baso # (Auto) Immature Gran # (Auto) Sodium Potassium Chloride Carbon Dioxide Anion Gap BUN Creatinine Est Cr Clr Drug Dosing Est GFR ( Amer) Est GFR (Non-Af Amer) BUN/Creatinine Ratio Glucose Calcium C-Reactive Protein 3.65 H B-Natriuretic Peptide Procalcitonin < 0.05 TSH 0.977 SARS-CoV-2 (PCR) Influenza Type A (PCR) Influenza Type B (PCR) Aspergillus flavus Ab Aspergill fumigatus Ab Aspergillus niger Ab RSV (RT-PCR) 04/16/21 04/16/21 04/17/21 15:40 16:00 05:44 WBC 3.10 L RBC 3.27 L Hgb 11.1 L Hct 31.8 L MCV 97.2 MCH 33.9 MCHC 34.9 RDW Std Deviation 41.4 RDW Coeff of [place] 11.6 Plt Count 140 MPV 9.6 Immature Gran % (Auto) 0.3 Neut % (Auto) 84.2 Lymph % (Auto) 8.7 [place] % (Auto) 6.5 Eos % (Auto) 0.0 Baso % (Auto) 0.3 Neut # (Auto) 2.61 Lymph # (Auto) 0.27 L [place] # (Auto) 0.20 Eos # (Auto) 0.00 Baso # (Auto) 0.01 Immature Gran # (Auto) 0.01 Sodium Potassium Chloride Carbon Dioxide Anion Gap BUN Creatinine Est Cr Clr Drug Dosing Est GFR ( Amer) Est GFR (Non-Af Amer) BUN/Creatinine Ratio Glucose Calcium C-Reactive Protein B-Natriuretic Peptide 45 Procalcitonin TSH SARS-CoV-2 (PCR) POSITIVE A* Influenza Type A (PCR) Negative Influenza Type B (PCR) Negative Aspergillus flavus Ab Aspergill fumigatus Ab Aspergillus niger Ab RSV (RT-PCR) Negative 04/17/21 04/17/21 05:44 05:47 WBC RBC Hgb Hct MCV MCH MCHC RDW Std Deviation RDW Coeff of [place] Plt Count MPV Immature Gran % (Auto) Neut % (Auto) Lymph % (Auto) [place] % (Auto) Eos % (Auto) Baso % (Auto) Neut # (Auto) Lymph # (Auto) [place] # (Auto) Eos # (Auto) Baso # (Auto) Immature Gran # (Auto) Sodium 138 Potassium 3.9 Chloride 103 Carbon Dioxide 29 Anion Gap 6 BUN 10 Creatinine 0.66 Est Cr Clr Drug Dosing 71.2 Est GFR ( Amer) 108.2 Est GFR (Non-Af Amer) 93.4 BUN/Creatinine Ratio 15.2 Glucose 123 H Calcium 9.1 C-Reactive Protein B-Natriuretic Peptide Procalcitonin TSH SARS-CoV-2 (PCR) Influenza Type A (PCR) Influenza Type B (PCR) Aspergillus flavus Ab Pending Aspergill fumigatus Ab Pending Aspergillus niger Ab Pending RSV (RT-PCR) PG Care Time/CCT Total # of Minutes Spent Total Time Spent with Patient: Total time spent is greater than 50% in coordination of care (as documented) at patient's floor/unit and/or counseling patient: Coding Level of Care Code 03276 Subseq Hosp Care Lvl 3 Diagnoses Abnormal ECG R94.31 B-cell lymphoma of intra-abdominal lymph nodes C85.13 Pneumonia due to COVID-19 virus U07.1; J12.82 Severe protein-calorie malnutrition E43 Acute respiratory failure with hypoxia J96.01 Pancytopenia D61.818 Candidiasis of mouth and esophagus B37.81; B37.0 DVT prophylaxis Z29.9
[2021-04-17] MEDS ORDERED: SODIUM CHLORIDE 0.9% 500 ML IV SCH (14:30)
--- NOTE | 2021-04-17 15:38 | Pulmonary Consultation ---
Date of Consultation April 17, 2021 Assessment & Plan (1) COVID-19: (2) Persistent cough: (3) Abnormal CT scan, chest: (4) Hypoxia: 65-year-old female with a history of follicular lymphoma on maintenance Rituxan therapy who presented to the hospital due to persistent cough and shortness of breath. She was originally COVID-19 positive on 03/22/2021 and remains persistently positive. She did receive 3 COVID-[address] chest is characteristic of COVID-19. She has a cough that is dry. Will initiate Tessalon Perles 200 mg, 3 times daily. We will trial the patient on an ICS/LABA inhaler (Breo Ellipta) for a possible airway component to her cough. I do not necessarily see a role for systemic steroids at this time. Her CRP is mildly elevated, but the significance of this is unclear. She does have mild hypoxemia with exertion which may be potentiating her cough. Recommend using oxygen with exertion to maintain sats above 90%. She was informed that she may have a protracted course of illness that should slowly recover with time. There is a risk of potential further decline and fibrosis of her lung parenchyma, but at this time it is difficult to say whether there is truly fibrosis or this is simply postinflammatory given her recent COVID-19 illness. Other atypical illnesses remain possible including fungal disease, but less likely given that she is afebrile and does not appear overly toxic. Her CT chest findings do not necessarily suggest such etiologies as PJP or Aspergillus. Aspergillus studies are pending. Urine Legionella antigen is pending as well as ordered by the hospitalist. We will continue to follow along with you. Will consider reinstituting a course of systemic steroids tomorrow if no significant improvement in symptoms. Thank you. Please call with questions. D/w nurse and hospitalist. History of Present Illness Reason for Consultation: Hypoxia and persistent cough in the context of recent COVID-19 pneumonia Attending Physician: Bob Dubois History of Present Illness 65-year-old female with a past medical history of follicular lymphoma on maintenance Rituxan therapy who presented to the hospital on 04/16/2021 due to increasing shortness of breath and cough. She initially had a COVID-19 positive test on 03/22/2021 as a family member tested positive. She developed fatigue symptoms at that time. She did complete a course of Decadron earlier in the month. She notes worsening shortness of breath. She has a significant dry cough which has not been responsive to albuterol or cough syrup. No fevers. She has noted 15 pounds of weight loss and a decreased appetite since the initiation of symptoms. She notes that she received 3 doses of a COVID-19 vaccine. She denies any pets. She denies any history of respiratory disease or chronic illness such as asthma or COPD. She works for an [employer] company. She mostly works at home. Noncontrast chest CT from 12/20/2020 was reviewed. No active disease was noted on that CT. Chest CTA from 04/16/2021 reviewed with multifocal groundglass opacities consistent with viral pneumonia. She is requiring 2 L of oxygen with exertion, but has not needed oxygen at rest. Additionally, she has had complaints of abdominal discomfort and nausea today. She did undergo a CT of her abdomen yesterday which demonstrated a slight decrease in the size of a low-attenuation lesion within the mesenteric root and right perirectal soft tissue. Otherwise no significant disease was appreciated. Allergies Allergy/AdvReac Type Severity Reaction Status Date / Time No Known Allergies Allergy Verified 04/16/21 12:29 Home Medications Medication Instructions Recorded Confirmed Type clonazepam 0.5 mg tablet (Klonopin) 0.5 mg PO QPM tab 01/06/19 04/16/21 History meloxicam submicronized 10 mg 10 mg PO QAM 01/06/19 04/16/21 History capsule (Vivlodex) eletriptan 20 mg tablet (Relpax) 20 mg PO Q2H PRN 01/07/19 04/16/21 History sumatriptan succinate 25 mg tablet 25 mg PO Q2H PRN 01/07/19 04/16/21 History niacin 100 mg tablet 100 mg PO DAILY 02/24/19 04/16/21 History cholecalciferol (vitamin D3) 25 25 mcg PO QAM 09/27/19 04/16/21 History mcg (1,000 unit) tablet (Vitamin D3) loratadine 10 mg tablet 10 mg PO QAM 09/27/19 04/16/21 History multivitamin 1 tab PO QAM 09/27/19 04/16/21 History fluoxetine 40 mg capsule 40 mg PO QAM 04/16/21 04/16/21 History Patient History Medical History (Updated 04/17/21 @ 15:40 by Jose Angel Tinoco MD) Abnormal CT scan, chest Anxiety B-cell lymphoma of intra-abdominal lymph nodes Follicular lymphoma History of colon polyps Hypoxia Migraine Osteoarthritis Port-A-Cath in place (02/24/19) Insertion of Infusaport Left Internal Jugular Dr. De La Torre 02/24/19 Surgical History History of colonoscopy History of D&C History of esophagogastroduodenoscopy (EGD) History of tonsillectomy History of tubal ligation History of wisdom tooth extraction Hx of lymph node biopsy x 2 Family History Father Hypertension Heart disease Mother Heart disease Grandmother (Maternal) Colorectal cancer Grandfather (Maternal) Colorectal cancer Social History Smoking Status: Smoker, status unknown Second Hand Exposure: Yes (as a child); Hx Alcohol Use: No Hx Substance Use: No Preferred Language: Belarusian Communication Ability: Effective Svp Required: No Beliefs That Will Affect Care: None marital status: Current Living Situation: Spouse current occupational status: employed 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 Eyes: Pupils are equal round and reactive to light. Conjunctivae are normal. Anicteric sclera. Ears nose, mouth and throat: No obvious facial deformities. Neck: Trachea is midline. Visual inspection is normal. Respiratory: Mild rhonchi noted bilaterally. No significant expiratory wheeze. Coughing throughout the exam. Cardiovascular: Regular rate and rhythm. No murmurs. No edema. Gastrointestinal: Normal bowel sounds, soft, nontender and nondistended. No hepatosplenomegaly noted. Musculoskeletal: No cyanosis. Patient is able to move all extremities. = Skin: No rashes, warm dry and intact. Neurologic: No obvious focal neurological deficits seen. Psychiatric: Alert and oriented x3 with a euthymic affect. Results & Data Results & Data ([facility]) Vital Signs (Past 12 Hours) Vital Signs Temp Pulse Pulse Resp BP Pulse Ox Pulse Ox 04/17/21 14:27 92 04/17/21 12:51 95/51 L 04/17/21 12:00 37.3 C 75 14 91/45 L 98 04/17/21 08:00 57 L 04/17/21 07:49 36.8 C 91 H 18 96/60 L 94 04/17/21 05:45 36.5 C 63 16 86/52 L 98 Pulse Ox 04/17/21 14:27 100 04/17/21 12:51 04/17/21 12:00 04/17/21 08:00 04/17/21 07:49 04/17/21 05:45 PG Care Time/CCT Total # of Minutes Spent Total Time Spent with Patient: Total time spent is greater than 50% in coordination of care (as documented) at patient's floor/unit and/or counseling patient: Coding Level of Care Code 73791 Inpt Consult Level 5 Diagnoses COVID-19 U07.1 Persistent cough R05.[address] scan, chest R93.89 Hypoxia R09.02
[2021-04-17] MEDS: ACETAMINOPHEN 325 MG TAB PO PRN (17:20)
[2021-04-17] MEDS: FLUTICASONE/VILANTEROL 200/25MCG 14 PUFFS/INHALER INH SCH (17:22)
[2021-04-17] MEDS: NYSTATIN SUSP 500,000 U/5 ML UDC PO SCH ×2 (17:23→20:37)
[2021-04-17] MEDS ORDERED: HYDROcodone/HOMATROPINE SYRUP 5MG/1.5MG 5ML UDP PO PRN (20:00)
[2021-04-17] MEDS: BENZONATATE 100 MG CAPSULE PO SCH (20:37)
[2021-04-17] MEDS: guaiFENesin 600 MG TABCR PO SCH (20:38)
[2021-04-17] MEDS: ENOXAPARIN INJ 40 MG/0.4 ML SYR SQ SCH (20:38)
[2021-04-18 06:43] LABS: Basophils # (auto) 0.01 K/uL (0-0.2); Basophils % (auto) 0.3 %; Hematocrit (blood only) 30.2 % (37-47); Hemoglobin 10.6 g/dL (12.0-16.0); Immature Granulocytes # (auto) 0.01 K/uL (0.00-0.02); Immature Granulocytes % (auto) 0.3 %; Lymphocytes # (auto) 0.21 K/uL (1.2-3.4); Mean Corpuscular Hgb Conc 35.1 g/dL (32-36); Mean Corpuscular Volume 96.8 fL (80-100); Mean Platelet Volume 9.7 fL (7.4-10.4); Monocytes # (auto) 0.25 K/uL (0.11-0.59); Monocytes % (auto) 7.1 %; Neutrophils # (auto) 3.03 K/uL (1.4-6.5); Neutrophils % (auto) 86.3 %; Platelet Count 132 K/uL (130-400); RDW Coefficient of Variation 11.7 % (11.5-14.5); RDW Standard Deviation 41.8 fL (36.4-46.3); Red Blood Count 3.12 M/uL (4.2-5.4); White Blood Count 3.51 K/uL (4.8-10.8)
[2021-04-18 07:33] LABS: BUN Creatinine Ratio 18.8 (10-20); Calcium 8.3 mg/dl (8.5-10.1); Creatinine Clr Calc Pharmacy 73.8 ml/min; Est GFR (African American) 106.6 ml/min; Potassium 3.7 mmol/L (3.5-5.1)
[2021-04-18 07:48] LABS: Folate (Folic Acid) 19.08 ng/ml (>5.38)
[2021-04-18] MEDS: ACETAMINOPHEN 325 MG TAB PO PRN ×2 (09:10→20:16)
[2021-04-18] MEDS: MELOXICAM 7.5 MG TAB PO SCH (09:11)
[2021-04-18] MEDS: FLUoxetine HCL 20 MG CAP PO SCH (09:11)
[2021-04-18] MEDS: LORATADINE 10 MG TAB PO SCH (09:11)
[2021-04-18] MEDS: FLUTICASONE/VILANTEROL 200/25MCG 14 PUFFS/INHALER INH SCH (09:11)
[2021-04-18] MEDS: BENZONATATE 100 MG CAPSULE PO SCH ×3 (09:12→20:16)
[2021-04-18] MEDS: guaiFENesin 600 MG TABCR PO SCH ×2 (09:12→20:16)
[2021-04-18] MEDS: CEROVITE ADV FORMULA TAB PO SCH (09:13)
[2021-04-18] MEDS: NYSTATIN SUSP 500,000 U/5 ML UDC PO SCH ×4 (09:13→20:16)
--- NOTE | 2021-04-18 09:42 | XRay Report ---
XR chest 1V portable CLINICAL HISTORY: COVID-19 pneumonia; new fever TECHNIQUE: Single frontal radiograph of the chest was obtained. Comparison: Comparison is made to chest one view 02/24/2019 FINDINGS: A port catheter is seen. The cardiomediastinal silhouette is normal. Multifocal airspace opacities ar e seen. No evidence of pleural effusion or pneumothorax. IMPRESSION: Multifocal airspace opacities may represent atelectasis, pneumonia, and/or aspiration. ACT 112: Negative or not required by law. Electronically signed by: Beto Taveras M.D. 04/18/2021 9:40 AM
[2021-04-18] MEDS: CHOLECALCIFEROL 1,000 UNITS 25 MCG TAB PO SCH (10:43)
[2021-04-18 10:49] LABS: Appearance Urine Clear (Clear); Bacteria Urine Automated Negative (Negative); Bilirubin Urine Negative (Negative); Blood Urine Negative (Negative); Color Urine Yellow; Epithelial Cell Urine Auto 20-30 /lpf (0-5); Glucose Urine UA Negative (Negative); Ketones Urine Trace (Negative); Leukocyte Esterase Urine Negative (Negative); Nitrite Urine Negative (Negative); Protein Urine Trace (Negative); RBC Urine Automated 0-4 /hpf (0-4); Specific Gravity Urine 1.024 (1.000-1.030); Urobilinogen Urine Positive (Negative)
--- NOTE | 2021-04-18 11:10 | Pulmonology Progress Note ---
Date of Service April 18, 2021 Assessment & Plan (1) COVID-19: (2) Persistent cough: (3) Abnormal CT scan, chest: (4) Hypoxia: (5) Fever: Plan: 65-year-old female with a history of follicular lymphoma on maintenance Rituxan therapy who presented to the hospital due to persistent cough and shortness of breath. She was originally COVID-19 positive on 03/22/2021 and remains persistently positive. She did receive 3 COVID-[address] chest is characteristic of COVID-19. She has a cough that is dry. Continue Tessalon Perles and Breo Ellipta as she does appear to be improving from a cough perspective. She had a fever today. Procalcitonin ordered. Urinalysis ordered by the primary team. Fever possibly related to COVID-19 itself or lymphoma. Recommend to two step prior to discharge home to evaluate oxygen needs on exertion. 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 As discussed previously, she does have risk factors for possibly developing pulmonary fibrosis related to COVID-19. We will need to obtain follow-up imaging in the future along with possible PFTs. Discussed with bedside nurse. Thank you. Please call with questions. Admission and Anticipated Discharge Date Admission Date: April 16, 2021 Subjective Patient seen and examined. This morning she had a temperature of 39.4 C. She relates that she feels sweaty this morning. She denies any shortness of breath at rest. She feels that her cough has improved. No chest pain. No fevers currently. She is saturating in the low 90s on room air while laying in bed Review of Systems Review of Systems: All systems reviewed & are unremarkable except as noted in Subjective Physical Exam Physical Exam: Constitutional: Lethargic appearing female laying in bed. Eyes: Pupils are equal round and reactive to light. Conjunctivae are normal. Anicteric sclera. Ears nose, mouth and throat: No obvious facial deformities. Neck: Trachea is midline. Visual inspection is normal. Respiratory: Diminished at the bases bilaterally. No significant expiratory wheeze. Coughing throughout the exam. Cardiovascular: Regular rate and rhythm. No murmurs. No edema. Gastrointestinal: Normal bowel sounds, soft, nontender and nondistended. No hepatosplenomegaly noted. Musculoskeletal: No cyanosis. Patient is able to move all extremities. Skin: No rashes, warm dry and intact. Neurologic: No obvious focal neurological deficits seen. Psychiatric: Alert and oriented x3 with a euthymic affect. Results & Data Results & Data ([facility]) Vital Signs (Past 12 Hours) Vital Signs Temp Pulse Pulse Resp BP Pulse Ox 04/18/21 11:01 83 04/18/21 07:44 39.4 C H 92 H 22 107/61 91 04/18/21 05:16 39.2 C H 85 17 102/59 L 91 04/18/21 00:15 76 04/17/21 23:57 37.3 C 79 16 93/51 L 93 PG Care Time/CCT Total # of Minutes Spent Total Time Spent with Patient: Total time spent is greater than 50% in coordination of care (as documented) at patient's floor/unit and/or counseling patient: Coding Level of Care Code 82598 Subseq Hosp Care Lvl 3 Diagnoses COVID-19 U07.1 Persistent cough R05.[address] scan, chest R93.89 Hypoxia R09.02 Fever R50.9
--- NOTE | 2021-04-18 18:53 | Hospitalist Progress Note ---
Date of Service April 18, 2021 Assessment & Plan (1) Fever: Plan: Procal is 0 today. CBC unchanged. She actually feels better today; has no new infectious complaints/symptoms. ua not suspicious for UTI but culture sent to be complete. CXR without any significant lobar infiltrates or progression of her known COVID- 19 pneumonia. Her fever could be due to her lymphoma. Fever from COVID-19 infection would be unusual as she is about 1 month out from the start of her illness. She has no signs/symptoms of MIS-A. Recent chest/abd/pelvis CTs without other source of infection. Plan - * await aspergillus titers * await legionella urine ag * consider doxy or azithromycin for atypical bacterial pathogens but only if pulmonary feels it is indicated * repeat blood cultures IF there is another temp spike to >38 C; obtain 1 set from her port * continue to monitor * follow urine cx * consider [employer] Resp panel - look for other superimposed viral process (2) Acute respiratory failure with hypoxia: Plan: 2nd to COVID-19 pneumonia. She is about 1 month into her illness. There does not appear to be superimposed acute CHF, bacterial superinfection, or VTE. Fungal infection/atypical infections are possible in the setting of significant immune compromise from her lymphoma & rituximab treatments but felt to be less likely. [id number] aspergillus titers sent, and legionella urine ag is pending. Continue NC O2 to maintain O2 sats >92%. I suspect that she has simply had a severe case of COVID-19 pneumonia in the setting of her lymphoma. Ongoing recovery will likely continue well after discharge. Should have pulmonary f/u post-discharge. I appreciate pulmonary consultation and their recs. Cont tessalon TID. Cont hycodan prn. Cont IS/flutter. Cont proning/positioning techniques. Formal 2-step O2 test before d/c. See above re: fever. (3) Pneumonia due to COVID-19 virus: Plan: She just completed a 10-day course of dexamethasone 6mg daily as an outpatient. She also received IV dexamethasone in the ER. Her CTA chest appears to show typical COVID-19 pneumonia. Obvious fibrosis is not seen. Lobar consolidation is not seen. Procal is negative. Repeat procalcitonin today again negative. CRP only mildly elevated at 3. Defer on additional steroids for now. [facility]iate [facility] [place]recs. See #2 for other information. Will need pulmonary f/u post-d/c. (4) Pancytopenia: Plan: Her lymphoma is the likely cause. however, COVID-19 infection can contribute to such. TSH noted to be normal. B12/folate normal. Follow cbc. Fortunately the cell counts are acceptable. (5) Severe protein-calorie malnutrition: Plan: 2nd to COVID-19 infection. Lymphoma also could be contributing. Cont supportive care. Added boost. Added MVI. 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 Follows with [facility]. Porter-CT this admission appears to show positive treatment response. Fever could be lymphoma related. (7) Candidiasis of mouth and esophagus: Plan: 2nd steroids, etc. Nystatin liquid - 5cc qid swish/swallow. Improved. (8) Abnormal ECG: Plan: EKG showed RBBB and T wave inversions suggestive of inferolateral ischemia. No ischemic symptoms, however. Initial troponin negative. Echo with preserved EF and no wall motion abnormalities. (9) DVT prophylaxis: Plan: lovenox daily (10) Hyponatremia: Plan: very mild follow bmp am Plan: was updated at bedside today patient has been taken out of airborne isolation as approved by infection control (she is 4 weeks post the initial date of her COVID illness) Admission and Anticipated Discharge Date Admission Date: April 16, 2021 Subjective patient states she feels overall much better than yesterday cough IS improved relative to prior days she is proning or performing side positioning and is being diligent about IS and flutter valve usage her appetite is better her dyspnea is improved she had the O2 off while laying in the bed and her O2 sats were adequate she had a temp spike to 102 this am she did not even realize she had a fever did not feel poorly during the temp spike she is not sure if she gets fevers at home - she does not check her temperatures she has nightsweats quite commonly - but again has never checked her temp during those episodes of sweats at bedside - he is happy she is better tele overnight wnl Review of Systems Review of Systems: gen - eating improved; still w/ fatigue cv - no chest pain, no orthopnea; no dizziness or lightheadedness pulm - dry cough - improved; no sputum; dyspnea better GI - no N/V/D - no dysuria Physical Exam Physical Exam: gen - looks better than yesterday, did not cough during the entire 15 min visit mouth - MMM; thrush improved on tongue neck - no JVD heart - RRR, s1 s2, no murmur lungs - scattered b/l fine, dry rales; no wheeze; better airation today; no increased work of breathing abd - soft NT ND BS+; No HSM ext - no edema, pulses 2+ b/l psych - a/o x 3 skin - no rash Results & Data Results & Data ([facility]) Vital Signs (Past 12 Hours) Vital Signs Temp Pulse Pulse Resp BP Pulse Ox Pulse Ox 04/18/21 18:00 98 04/18/21 17:40 37.0 C 04/18/21 11:37 36.4 C L 75 18 90/51 L 91 04/18/21 11:01 83 04/18/21 07:44 39.4 C H 92 H 22 107/61 91 Laboratory Results Laboratory Results - last 24 hr 04/18/21 04/18/21 04/18/21 06:06 06:06 06:06 WBC 3.51 L RBC 3.12 L Hgb 10.6 L Hct 30.2 L MCV 96.8 MCH 34.0 MCHC 35.1 RDW Std Deviation 41.8 RDW Coeff of [place] 11.7 Plt Count 132 MPV 9.7 Immature Gran % (Auto) 0.3 Neut % (Auto) 86.3 Lymph % (Auto) 6.0 [place] % (Auto) 7.1 Eos % (Auto) 0.0 Baso % (Auto) 0.3 Neut # (Auto) 3.03 Lymph # (Auto) 0.21 L [place] # (Auto) 0.25 Eos # (Auto) 0.00 Baso # (Auto) 0.01 Immature Gran # (Auto) 0.01 Sodium 133 L Potassium 3.7 Chloride 102 Carbon Dioxide 25 Anion Gap 6 BUN 13 Creatinine 0.69 Est Cr Clr Drug Dosing 73.8 Est GFR ( Amer) 106.6 Est GFR (Non-Af Amer) 92.0 BUN/Creatinine Ratio 18.8 Glucose 92 Calcium 8.3 L Vitamin B12 450 Folate 19.08 Procalcitonin Urine Color Urine Appearance Urine pH Ur Specific [place] Urine Protein Urine Glucose (UA) Urine Ketones Urine Blood Urine Nitrite Urine Bilirubin Urine Urobilinogen Ur Leukocyte Esterase Urine WBC (Auto) Urine RBC (Auto) U Hyaline Cast (Auto) U Epithel Cells (Auto) Urine Bacteria (Auto) Urine Legionella Ag 04/18/21 04/18/21 04/18/21 06:06 09:15 09:15 WBC RBC Hgb Hct MCV MCH MCHC RDW Std Deviation RDW Coeff of [place] Plt Count MPV Immature Gran % (Auto) Neut % (Auto) Lymph % (Auto) [place] % (Auto) Eos % (Auto) Baso % (Auto) Neut # (Auto) Lymph # (Auto) [place] # (Auto) Eos # (Auto) Baso # (Auto) Immature Gran # (Auto) Sodium Potassium Chloride Carbon Dioxide Anion Gap BUN Creatinine Est Cr Clr Drug Dosing Est GFR ( Amer) Est GFR (Non-Af Amer) BUN/Creatinine Ratio Glucose Calcium Vitamin B12 Folate Procalcitonin < 0.05 Urine Color Yellow Urine Appearance Clear Urine pH 6.0 Ur Specific [place] 1.024 Urine Protein Trace H Urine Glucose (UA) Negative Urine Ketones Trace H Urine Blood Negative Urine Nitrite Negative Urine Bilirubin Negative Urine Urobilinogen Positive H Ur Leukocyte Esterase Negative Urine WBC (Auto) 1-5 Urine RBC (Auto) 0-4 U Hyaline Cast (Auto) 1-5 U Epithel Cells (Auto) 20-30 H Urine Bacteria (Auto) Negative Urine Legionella Ag Pending PG Care Time/CCT Total # of Minutes Spent Total Time Spent with Patient: Total time spent is greater than 50% in coordination of care (as documented) at patient's floor/unit and/or counseling patient: Coding Level of Care Code 94878 Subseq Hosp Care Lvl 3 Diagnoses Acute respiratory failure with hypoxia J96.01 Pneumonia due to COVID-19 virus U07.1; J12.82 Pancytopenia D61.818 Severe protein-calorie malnutrition E43 B-cell lymphoma of intra-abdominal lymph nodes C85.13 Candidiasis of mouth and esophagus B37.81; B37.0 Abnormal ECG R94.31 DVT prophylaxis Z29.9 Hyponatremia E87.1 Fever R50.9
[2021-04-18] MEDS: ENOXAPARIN INJ 40 MG/0.4 ML SYR SQ SCH (20:16)
[2021-04-19] MEDS: HEPARIN 100 UNIT/ML 5ML FLUSH FLUSH PRN ×2 (00:52→20:17)
[2021-04-19] MEDS: ACETAMINOPHEN 325 MG TAB PO PRN ×2 (03:53→15:25)
[2021-04-19 06:16] LABS: Basophils # (auto) 0.01 K/uL (0-0.2); Basophils % (auto) 0.3 %; Eosinophils # (auto) 0.03 K/uL (0-0.5); Hematocrit (blood only) 30.1 % (37-47); Hemoglobin 10.6 g/dL (12.0-16.0); Immature Granulocytes # (auto) 0.01 K/uL (0.00-0.02); Immature Granulocytes % (auto) 0.3 %; Lymphocytes % (auto) 6.9 %; Mean Corpuscular Hemoglobin 34.1 pg (25-34); Mean Corpuscular Hgb Conc 35.2 g/dL (32-36); Mean Corpuscular Volume 96.8 fL (80-100); Monocytes # (auto) 0.15 K/uL (0.11-0.59); Monocytes % (auto) 5.2 %; Neutrophils # (auto) 2.49 K/uL (1.4-6.5); Neutrophils % (auto) 86.3 %; Platelet Count 137 K/uL (130-400); RDW Coefficient of Variation 11.9 % (11.5-14.5); Red Blood Count 3.11 M/uL (4.2-5.4); White Blood Count 2.89 K/uL (4.8-10.8)
[2021-04-19 06:49] LABS: BUN Creatinine Ratio 15.9 (10-20); C Reactive Protein 4.67 mg/dl (0-0.5); Calcium 8.6 mg/dl (8.5-10.1); Creatinine Clr Calc Pharmacy 74.6 ml/min; Est GFR (African American) 109.9 ml/min; Est GFR (Non-African American) 94.8 ml/min; Potassium 3.3 mmol/L (3.5-5.1)
[2021-04-19] MEDS: MELOXICAM 7.5 MG TAB PO SCH (08:16)
[2021-04-19] MEDS: LORATADINE 10 MG TAB PO SCH (08:16)
[2021-04-19] MEDS: guaiFENesin 600 MG TABCR PO SCH ×2 (08:16→20:17)
[2021-04-19] MEDS: BENZONATATE 100 MG CAPSULE PO SCH ×3 (08:16→20:17)
[2021-04-19] MEDS: CHOLECALCIFEROL 1,000 UNITS 25 MCG TAB PO SCH (08:16)
[2021-04-19] MEDS: CEROVITE ADV FORMULA TAB PO SCH (08:16)
[2021-04-19] MEDS: FLUoxetine HCL 20 MG CAP PO SCH (08:16)
[2021-04-19] MEDS: NYSTATIN SUSP 500,000 U/5 ML UDC PO SCH ×4 (08:16→20:17)
[2021-04-19] MEDS: FLUTICASONE/VILANTEROL 200/25MCG 14 PUFFS/INHALER INH SCH (08:17)
[2021-04-19] MEDS ORDERED: POTASSIUM CHLORIDE CRTAB 20 MEQ TABCR PO STA (08:29)
[2021-04-19 14:59] LABS: Adenovirus PCR Not Detected (NotDetected); Bordetella parapertussis PCR Not Detected (NotDetected); Bordetella pertussis PCR Not Detected (NotDetected); Chlamydia pneumoniae PCR Not Detected (NotDetected); Coronavirus 229E PCR Not Detected (NotDetected); Coronavirus HKU1 PCR Not Detected (NotDetected); Coronavirus NL63 PCR Not Detected (NotDetected); Coronavirus OC43PCR Not Detected (NotDetected); Human Metapneumovirus PCR Not Detected (NotDetected); Influenza A PCR Not Detected (NotDetected); Influenza B PCR Not Detected (NotDetected); Mycoplasma pneumoniae PCR Not Detected (NotDetected); Parainfluenza Virus 1 PCR Not Detected (NotDetected); Parainfluenza Virus 2 PCR Not Detected (NotDetected); Parainfluenza Virus 3 PCR Not Detected (NotDetected); Parainfluenza Virus 4 PCR Not Detected (NotDetected); Respiratory Syncytial VirusPCR Not Detected (NotDetected); Rhinovirus/Enterovirus PCR Not Detected (NotDetected)
[2021-04-19 15:09] LABS: Coronavirus CoV-2 (COVID19)PCR DETECTED (NotDetected)
--- NOTE | 2021-04-19 17:32 | Pulmonology Progress Note ---
Date of Service April 19, 2021 Assessment & Plan (1) COVID-19: (2) Persistent cough: (3) Abnormal CT scan, chest: (4) Hypoxia: (5) Fever: Plan: 65-year-old female with a history of follicular lymphoma on maintenance Rituxan therapy who presented to the hospital due to persistent cough and shortness of breath. She was originally COVID-19 positive on 03/22/2021 and remains persistently positive. She did receive 3 COVID-[address] chest is characteristic of COVID-19. She has a cough that is dry but improving Continue Tessalon Perles and Breo Ellipta as she does appear to be improving from a cough perspective. She likely has postinfectious bronchitis. Procalcitonin ordered. She continues to have a low-grade fever likely related to her COVID-19 pneumonia and lymphoma. No signs of clear bacterial infection. Procalcitonin was within normal limits. She require follow-up imaging with a chest x-ray in the next 4 to 6 weeks. We will have her scheduled for follow-up in the office with a chest x-ray in that timeframe. Pulmonary will sign off at this time. Thank you for the consult. Admission and Anticipated Discharge Date Admission Date: April 16, 2021 Subjective Patient seen and examined today. Cough continues to be significantly improved compared to her admission. She continues to have a low-grade temperature. She feels better today. No chest pain or fevers. She was able to ambulate around her room without needing oxygen. She definitely has increased energy compared to yesterday. She is eager to go home. Review of Systems Review of Systems: All systems reviewed & are unremarkable except as noted in Subjective Physical Exam Physical Exam: Constitutional: Lethargic appearing female laying in bed. Eyes: Pupils are equal round and reactive to light. Conjunctivae are normal. Anicteric sclera. Ears nose, mouth and throat: No obvious facial deformities. Neck: Trachea is midline. Visual inspection is normal. Respiratory: Diminished at the bases bilaterally. No significant expiratory wheeze. Cardiovascular: Regular rate and rhythm. No murmurs. No edema. Gastrointestinal: Normal bowel sounds, soft, nontender and nondistended. No hepatosplenomegaly noted. Musculoskeletal: No cyanosis. Patient is able to move all extremities. Skin: No rashes, warm dry and intact. Neurologic: No obvious focal neurological deficits seen. Psychiatric: Alert and oriented x3 with a euthymic affect. Results & Data Results & Data ([facility]) Vital Signs (Past 12 Hours) Vital Signs Temp Pulse Pulse Pulse Pulse Pulse Resp 04/19/21 15:27 38.2 C H 90 17 04/19/21 14:00 39.4 C H 04/19/21 11:47 36.6 C 80 20 04/19/21 10:48 113 H 87 83 04/19/21 08:00 71 04/19/21 07:33 36.9 C 74 19 04/19/21 05:47 36.9 C Resp Resp Resp BP Pulse Ox Pulse Ox Pulse Ox 04/19/21 15:27 111/67 94 04/19/21 14:00 04/19/21 11:47 111/63 95 04/19/21 10:48 22 19 17 90 93 04/19/21 08:00 04/19/21 07:33 101/54 L 97 04/19/21 05:47 Pulse Ox 04/19/21 15:27 04/19/21 14:00 04/19/21 11:47 04/19/21 10:48 94 04/19/21 08:00 04/19/21 07:33 04/19/21 05:47 PG Care Time/CCT Total # of Minutes Spent Total Time Spent with Patient: Total time spent is greater than 50% in coordination of care (as documented) at patient's floor/unit and/or counseling patient: Coding Level of Care Code 91978 Subseq Hosp Care Lvl 2 Diagnoses COVID-19 U07.1 Persistent cough R05.[address] scan, chest R93.89 Hypoxia R09.02 Fever R50.9
--- NOTE | 2021-04-19 20:10 | Hospitalist Progress Note ---
Date of Service April 19, 2021 Assessment & Plan (1) Fever: Plan: Continues to have once-twice daily temperature spikes. She is often unaware she is even having the fevers. She has had no significant new complaints. ua not suspicious for UTI but culture pending. CXR without any significant lobar infiltrates or progression of her known COVID- 19 pneumonia. Her fever could be due to her lymphoma. Fever from COVID-19 infection would be unusual as she is about 1 month out from the start of her illness. [id number] still possible but atypical. She has no signs/symptoms of MIS-A. Recent chest/abd/pelvis CTs without other source of infection. Did a Biofire resp panel to exclude another concomitant virus (RSV, flu, enterovirus, etc) -- fully negative except for the COVID portion. Plan - * await aspergillus titers * await legionella urine ag * consider doxy or azithromycin for atypical bacterial pathogens but only if pulmonary feels it is indicated * repeat blood cultures last evening remain negative; blood cultures from admission also remain negative * continue to monitor * follow urine cx * check parvovirus titers, CMV DNA, EBV DNA If we get to tomorrow and all cultures are negative then fevers are likely lymphoma-related vs COVID or both. (2) Acute respiratory failure with hypoxia: Plan: 2nd to COVID-19 pneumonia. She is about 1 month into her illness. There does not appear to be superimposed acute CHF, bacterial superinfection, or VTE. (see #1 above) Fungal infection/atypical infections are possible in the setting of significant immune compromise from her lymphoma & rituximab treatments but felt to be less likely. [id number] aspergillus titers sent, and legionella urine ag is pending. Her clinical course is one of severe COVID-19 pneumonia in the setting of her lymphoma. Ongoing recovery will likely continue well after discharge. Should have pulmonary f/u post-discharge. I appreciate pulmonary consultation and their recs. Cont tessalon TID. Cont hycodan prn. Cont IS/flutter. Cont proning/positioning techniques. Formal 2-step O2 test today -- passed such. See above re: fever. (3) Pneumonia due to COVID-19 virus: Plan: She just completed a 10-day course of dexamethasone 6mg daily as an outpatient just before admission. She also received IV dexamethasone in the ER. Her CTA chest appears to show typical COVID-19 pneumonia. Obvious fibrosis is not seen. Lobar consolidation is not seen. Procal is negative. Repeat procalcitonin also negative. CRP only mildly elevated at 3-4. Defer on additional steroids for now. Appreciate [facility] Pulmonary consult/recs. See #2 for other information. Will need pulmonary f/u post-d/c. (4) Pancytopenia: Plan: Her lymphoma is the likely cause. however, COVID-19 infection can contribute to such. TSH noted to be normal. B12/folate normal. Follow cbc. Fortunately the cell counts are acceptable. (5) Severe protein-calorie malnutrition: Plan: 2nd to COVID-19 infection. Lymphoma also could be contributing. Cont supportive care. Added boost. Added MVI. 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 Follows with [facility]. [facility]-CT this admission appears to show positive treatment response. Fever could be lymphoma related. see #1 above. (7) Candidiasis of mouth and esophagus: Plan: 2nd steroids, etc. Nystatin liquid - 5cc qid swish/swallow. Improved. (8) Abnormal ECG: Plan: EKG showed RBBB and T wave inversions suggestive of inferolateral ischemia. No ischemic symptoms, however. Initial troponin negative. Echo with preserved EF and no wall motion abnormalities. (9) DVT prophylaxis: Plan: lovenox daily (10) Hyponatremia: Plan: very mild normal today Plan: was updated at bedside yesterday hopefully can d/c home tomorrow Admission and Anticipated Discharge Date Admission Date: April 16, 2021 Subjective patient had fever once again today despite the fever she did not feel warm or hot she overall feels ok relative to the time of admission eating has improved cough has improved she can take larger breaths she denies any new complaints a repeat Biofire panel was negative except for COVID portion tele wnl Review of Systems Review of Systems: gen - fevers but no chills, appetite has improved cv - no cp or dizziness pulm - cough - dry - improved; no dyspnea at rest; some dyspnea on exertion; passed 2-step today GI - no N/V/D Physical Exam Physical Exam: gen - looks tired but NAD; no coughing noted during the visit mouth - MMM; thrush improved/resolved neck - no JVD heart - RRR, s1 s2, no murmur lungs - scattered b/l fine, dry rales; no wheeze; good airation; no increased work of breathing abd - soft NT ND BS+; No HSM ext - no edema, pulses 2+ b/l psych - a/o x 3 skin - no rash Results & Data Results & Data ([facility]) Vital Signs (Past 12 Hours) Vital Signs Temp Pulse Pulse Pulse Pulse Pulse Resp 04/19/21 19:41 37.2 C 84 18 04/19/21 15:27 38.2 C H 90 17 04/19/21 14:00 39.4 C H 04/19/21 11:47 36.6 C 80 20 04/19/21 10:48 113 H 87 83 Resp Resp Resp BP Pulse Ox Pulse Ox Pulse Ox 04/19/21 19:41 92/52 L 94 04/19/21 15:27 111/67 94 04/19/21 14:00 04/19/21 11:47 111/63 95 04/19/21 10:48 22 19 17 90 93 Pulse Ox 04/19/21 19:41 04/19/21 15:27 04/19/21 14:00 04/19/21 11:47 04/19/21 10:48 94 Laboratory Results Laboratory Results - last 24 hr 04/19/21 04/19/21 04/19/21 05:31 05:31 13:45 WBC 2.89 L RBC 3.11 L Hgb 10.6 L Hct 30.1 L MCV 96.8 MCH 34.1 H MCHC 35.2 RDW Std Deviation 42.0 RDW Coeff of [place] 11.9 Plt Count 137 MPV 10.0 Immature Gran % (Auto) 0.3 Neut % (Auto) 86.3 Lymph % (Auto) 6.9 [place] % (Auto) 5.2 Eos % (Auto) 1.0 Baso % (Auto) 0.3 Neut # (Auto) 2.49 Lymph # (Auto) 0.20 L [place] # (Auto) 0.15 Eos # (Auto) 0.03 Baso # (Auto) 0.01 Immature Gran # (Auto) 0.01 Sodium 137 Potassium 3.3 L Chloride 103 Carbon Dioxide 28 Anion Gap 6 BUN 10 Creatinine 0.63 Est Cr Clr Drug Dosing 74.6 Est GFR ( Amer) 109.9 Est GFR (Non-Af Amer) 94.8 BUN/Creatinine Ratio 15.9 Glucose 93 Calcium 8.6 C-Reactive Protein 4.67 H Adenovirus (PCR) Not Detected B. pertussis DNA (PCR) Not Detected B.parapertussis DNA PCR Not Detected C. pneumoniae DNA (PCR) Not Detected Coronavirus OC43 (PCR) Not Detected Coronavirus HKU1 (PCR) Not Detected Coronavirus 229E (PCR) Not Detected SARS-CoV-2 (PCR) DETECTED A* Coronavirus NL63 (PCR) Not Detected Human Metapneumovir PCR Not Detected Influenza Type A (PCR) Not Detected Influenza Type B (PCR) Not Detected M. pneumoniae (PCR) Not Detected Parainfluenza 1 (PCR) Not Detected Parainfluenza 2 (PCR) Not Detected Parainfluenza 3 (PCR) Not Detected Parainfluenza 4 (PCR) Not Detected RSV (PCR) Not Detected Entero/Rhino (PCR) Not Detected PG Care Time/CCT Total # of Minutes Spent Total Time Spent with Patient: Total time spent is greater than 50% in coordination of care (as documented) at patient's floor/unit and/or counseling patient: Coding Level of Care Code 54661 Subseq Hosp Care Lvl 2 Diagnoses Fever R50.9 Acute respiratory failure with hypoxia J96.01 Pneumonia due to COVID-19 virus U07.1; J12.82 Pancytopenia D61.818 Severe protein-calorie malnutrition E43 B-cell lymphoma of intra-abdominal lymph nodes C85.13 Candidiasis of mouth and esophagus B37.81; B37.0 Abnormal ECG R94.31 DVT prophylaxis Z29.9 Hyponatremia E87.1
[2021-04-19] MEDS: ENOXAPARIN INJ 40 MG/0.4 ML SYR SQ SCH (20:16)
[2021-04-20] MEDS: ACETAMINOPHEN 325 MG TAB PO PRN ×2 (00:29→14:18)
[2021-04-20 06:01] LABS: Basophils # (auto) 0.01 K/uL (0-0.2); Basophils % (auto) 0.4 %; Eosinophils # (auto) 0.03 K/uL (0-0.5); Eosinophils % (auto) 1.1 %; Hematocrit (blood only) 30.1 % (37-47); Hemoglobin 10.5 g/dL (12.0-16.0); Immature Granulocytes # (auto) 0.01 K/uL (0.00-0.02); Immature Granulocytes % (auto) 0.4 %; Lymphocytes # (auto) 0.35 K/uL (1.2-3.4); Lymphocytes % (auto) 12.6 %; Mean Corpuscular Hemoglobin 33.7 pg (25-34); Mean Corpuscular Hgb Conc 34.9 g/dL (32-36); Mean Corpuscular Volume 96.5 fL (80-100); Mean Platelet Volume 9.4 fL (7.4-10.4); Monocytes # (auto) 0.21 K/uL (0.11-0.59); Monocytes % (auto) 7.6 %; Neutrophils # (auto) 2.17 K/uL (1.4-6.5); Neutrophils % (auto) 77.9 %; Platelet Count 144 K/uL (130-400); RDW Standard Deviation 42.4 fL (36.4-46.3); Red Blood Count 3.12 M/uL (4.2-5.4); White Blood Count 2.78 K/uL (4.8-10.8)
[2021-04-20 06:21] LABS: BUN Creatinine Ratio 18.9 (10-20); Creatinine Clr Calc Pharmacy 88.7 ml/min; Est GFR (African American) 116.3 ml/min; Est GFR (Non-African American) 100.3 ml/min; Potassium 3.9 mmol/L (3.5-5.1)
[2021-04-20] MEDS: BENZONATATE 100 MG CAPSULE PO SCH ×3 (08:32→20:08)
[2021-04-20] MEDS: guaiFENesin 600 MG TABCR PO SCH ×2 (08:32→20:08)
[2021-04-20] MEDS: MELOXICAM 7.5 MG TAB PO SCH (08:32)
[2021-04-20] MEDS: NYSTATIN SUSP 500,000 U/5 ML UDC PO SCH ×4 (08:33→20:06)
[2021-04-20] MEDS: LORATADINE 10 MG TAB PO SCH (08:33)
[2021-04-20] MEDS: CHOLECALCIFEROL 1,000 UNITS 25 MCG TAB PO SCH (08:33)
[2021-04-20] MEDS: CEROVITE ADV FORMULA TAB PO SCH (08:33)
[2021-04-20] MEDS: FLUoxetine HCL 20 MG CAP PO SCH (08:34)
[2021-04-20] MEDS: FLUTICASONE/VILANTEROL 200/25MCG 14 PUFFS/INHALER INH SCH (08:34)
[2021-04-20] MEDS ORDERED: AZITHROMYCIN 250 MG TAB PO ONE (15:00)
[2021-04-20] MEDS ORDERED: AZITHROMYCIN 250 MG in DEXTROSE 5% 250 ML IV ONE (17:30)
[2021-04-20] MEDS: ENOXAPARIN INJ 40 MG/0.4 ML SYR SQ SCH (20:08)
--- NOTE | 2021-04-20 20:29 | Hospitalist Progress Note ---
Date of Service April 20, 2021 Assessment & Plan (1) Fever: Plan: Continues to have once-twice daily temperature spikes. She has had no significant new complaints. Thus far the following are negative -- 1. blood cx's x 4 sets including a set from her port 2. urine cx 3. legionella urine ag 4. Biofire resp panel (except for COVID portion) 5. CXR without any significant lobar infiltrates or progression of her known COVID-[address] chest/abd/pelvis without other source of fever with exception of her known lymphoma 7. echo - no valvular vegetations 8. TSH wnl (no thyroiditis) 9. recent troponin negative I still suspect her fevers are due to lymphoma +/- COVID infection. No evidence of MIS-A clinically. No meds that would cause drug fever. No sinusitis clinically. No symptoms/signs of meningitis. Plan - * await aspergillus titers * await parvovirus titers, CMV DNA, EBV DNA * check lyme screen am * check monospot in am * check dopplers of LEs - r/o DVT - as thrombosis can cause fever (typically not 39, however) * azithromycin 500mg x 1 now, then 250mg daily x 4 days - for atypical coverage Coxsackie/HSV/others are possible but no good test to determine if old vs new infection. Monitor overnight. Follow the most recent blood cx's. (2) Acute respiratory failure with hypoxia: Plan: 2nd to COVID-19 pneumonia. Acute resp failure resolved. Off O2, and she passed her 2-step O2 test yesterday as well. She is about 1 month into her illness. There does not appear to be superimposed acute CHF, bacterial superinfection, or VTE. (see #1 above) Fungal infection/atypical infections are possible in the setting of significant immune compromise from her lymphoma & rituximab treatments but felt to be less likely. [id number] aspergillus titers sent. Did start on azithromycin today - see #1 above. Her clinical course is one of severe COVID-19 pneumonia in the setting of her lymphoma. Ongoing recovery will likely continue well after discharge. Should have pulmonary f/u post-discharge. I appreciate pulmonary consultation and their recs. Cont tessalon TID. Cont hycodan prn. Cont IS/flutter. Cont proning/positioning techniques. See above re: fever. (3) Pneumonia due to COVID-19 virus: Plan: She just completed a 10-day course of dexamethasone 6mg daily as an outpatient just before admission. She also received IV dexamethasone in the ER. Her CTA chest appears to show typical COVID-19 pneumonia. Obvious fibrosis is not seen. Lobar consolidation is not seen. Procal is negative. Repeat procalcitonin also negative. CRP only mildly elevated at 3-4. Deferring on additional steroids for now. Appreciate [facility] Pulmonary consult/recs. See #2 for other information. Will need pulmonary f/u post-d/c. At discharge plan for xarelto 10mg po daily x 35 days for DVT proph at home. Free voucher given to patient. (4) Pancytopenia: Plan: Her lymphoma is the likely cause. however, COVID-19 infection can contribute to such. TSH noted to be normal. B12/folate normal. Follow cbc. Fortunately the cell counts are acceptable. No neutropenia. (5) Severe protein-calorie malnutrition: Plan: 2nd to COVID-19 infection. Lymphoma also could be contributing. Fortunately appetite has improved while here. Cont supportive care. Added boost. Added MVI. 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 Follows with [facility], Neelam GUILLAUME. Porter-CT this admission appears to show positive treatment response. Fever could be lymphoma related. see #1 above. IgG just shy of 600; obtained at Ms Arias's request. She will f/u on this in clinic. (7) Candidiasis of mouth and esophagus: Plan: 2nd steroids, etc. Improved/resolving. Nystatin liquid - 5cc qid swish/swallow. (8) Abnormal ECG: Plan: EKG showed RBBB and T wave inversions suggestive of inferolateral ischemia. No ischemic symptoms, however. Initial troponin negative. Echo with preserved EF and no wall motion abnormalities. Recheck a troponin in am - doubt myocarditis - no symptoms of such, and doubt fever is sign of myocardial involvement. (9) DVT prophylaxis: Plan: lovenox daily while here xarelto x 35 days post-d/c as above (10) Hyponatremia: Plan: resolved Plan: was updated by phone this evening d/c canceled today monitor overnight due to recurrent, significant/high fevers Admission and Anticipated Discharge Date Admission Date: April 16, 2021 Subjective saw patient twice today first visit- during AM rounds patient reported overall feeling ok although she did have fever/sweats about midnight last pm ate good breakfast cough largely controlled no dyspnea at rest denied headache denied sinus symptoms denied rash, cp, abd pain, diarrhea, Nausea, emesis, dysuria, joint pains, myalgias she was hoping to d/c home today I spoke with her primary oncologist, Neelam Arias MARKELL - we discussed her hospital course discussed recurrent fevers - suspicion is that the temps are lymphoma-related and/or COVID related IgG level obtained at Ms Arias's request - level just shy of 600 we discussed use of xarelto 10mg daily x 35 days for DVT proph during her COVID illness request when I visited her for the 2nd time later in the afternoon she appeared ill she reported feeling poorly temp checked by staff - 39.3 at that point d/c was canceled, tylenol given for fever Review of Systems Review of Systems: gen - fatigue - similar to admission; fevers/chills/sweats - 1-2x's each day; appetite fair-good however HENT - no ear pain, sore throat, sinus congestion pulm - no sputum, cough stable cv - no chest pain GI - no N/V/D - no dysuria musculo - no arthralgias, no myalgias skin - no rash neuro - no headache Physical Exam Physical Exam: gen - looks similar to previous exams mouth - MMM; thrush resolved neck - no JVD heart - RRR, s1 s2, no murmur lungs - scattered b/l fine, dry rales - I hear less rales than previous; no wheeze; good airation; no increased work of breathing abd - soft NT ND BS+; No HSM ext - no edema, pulses 2+ b/l psych - a/o x 3 skin - no rash; port L upper chest clean, nontender musculo - no synovitis any joint Results & Data Results & Data ([facility]) Vital Signs (Past 12 Hours) Vital Signs Temp Pulse Pulse Resp BP Pulse Ox 04/20/21 19:22 37.0 C 82 18 92/52 L 94 04/20/21 16:03 37.3 C 87 18 123/63 94 04/20/21 15:22 38.6 C H 04/20/21 14:20 84 04/20/21 14:18 39.3 C H 04/20/21 11:46 37.0 C 81 20 121/79 94 Laboratory Results Laboratory Results - last 24 hr 04/18/21 04/20/21 04/20/21 09:15 05:42 05:42 WBC 2.78 L RBC 3.12 L Hgb 10.5 L Hct 30.1 L MCV 96.5 MCH 33.7 MCHC 34.9 RDW Std Deviation 42.4 RDW Coeff of [place] 12.0 Plt Count 144 MPV 9.4 Immature Gran % (Auto) 0.4 Neut % (Auto) 77.9 Lymph % (Auto) 12.6 [place] % (Auto) 7.6 Eos % (Auto) 1.1 Baso % (Auto) 0.4 Neut # (Auto) 2.17 Lymph # (Auto) 0.35 L [place] # (Auto) 0.21 Eos # (Auto) 0.03 Baso # (Auto) 0.01 Immature Gran # (Auto) 0.01 Sodium 135 L Potassium 3.9 Chloride 103 Carbon Dioxide 26 Anion Gap 6 BUN 10 Creatinine 0.53 L Est Cr Clr Drug Dosing 88.7 Est GFR ( Amer) 116.3 Est GFR (Non-Af Amer) 100.3 BUN/Creatinine Ratio 18.9 Glucose 94 Calcium 8.0 L IgG CMV Specimen Source CMV Qnt PCR IU/mL CMV Qnt PCR log IU/mL EBV Source EBV DNA, Quant EBV DNA (PCR) Urine Legionella Ag SEE NOTE Parvovirus IgG Ab Index Parvovirus IgM Ab Index 04/20/21 04/20/21 05:42 12:36 WBC RBC Hgb Hct MCV MCH MCHC RDW Std Deviation RDW Coeff of [place] Plt Count MPV Immature Gran % (Auto) Neut % (Auto) Lymph % (Auto) [place] % (Auto) Eos % (Auto) Baso % (Auto) Neut # (Auto) Lymph # (Auto) [place] # (Auto) Eos # (Auto) Baso # (Auto) Immature Gran # (Auto) Sodium Potassium Chloride Carbon Dioxide Anion Gap BUN Creatinine Est Cr Clr Drug Dosing Est GFR ( Amer) Est GFR (Non-Af Amer) BUN/Creatinine Ratio Glucose Calcium IgG 562.8 L CMV Specimen Source Pending CMV Qnt PCR IU/mL Pending CMV Qnt PCR log IU/mL Pending EBV Source Pending EBV DNA, Quant Pending EBV DNA (PCR) Pending Urine Legionella Ag Parvovirus IgG Ab Index Pending Parvovirus IgM Ab Index Pending Diagnostic Findings blood cx's from admission negative blood cx's from 3/2 negative urine cx negative PG Care Time/CCT Total # of Minutes Spent Total Time Spent with Patient: Total time spent is greater than 50% in coordination of care (as documented) at patient's floor/unit and/or counseling patient: Coding Level of Care Code 29175 Subseq Hosp Care Lvl 3 Diagnoses Fever R50.9 Acute respiratory failure with hypoxia J96.01 Pneumonia due to COVID-19 virus U07.1; J12.82 Pancytopenia D61.818 Severe protein-calorie malnutrition E43 B-cell lymphoma of intra-abdominal lymph nodes C85.13 Candidiasis of mouth and esophagus B37.81; B37.0 Abnormal ECG R94.31 DVT prophylaxis Z29.9 Hyponatremia E87.1
[2021-04-21 06:14] LABS: Troponin I < 0.03 ng/ml (0-0.04)
[2021-04-21 06:26] LABS: Alanine Aminotransferase 23 U/L (7-52); Albumin Level 3.2 gm/dl (3.4-5.0); Alkaline Phosphatase 63 U/L (34-104); Aspartate Aminotransferase 24 U/L (13-39); Bilirubin,Total 0.3 mg/dl (0.2-1.0); Total Protein 6.6 gm/dl (6.0-8.3)
[2021-04-21 07:35] LABS: Monotest Negative (Negative)
[2021-04-21 07:50] LABS: Lyme Ab IgG w/WB Rflx Negative (Negative)
--- NOTE | 2021-04-21 07:57 | Ultrasound Report ---
US venous doppler LE BI CLINICAL HISTORY: persistent fever, lymphoma; eval DVT either leg COMPARISON: None available at the time of this dictation. TECHNIQUE: Bilateral lower extremity real-time compression venous ultrasound with Color Doppler imagi ng. Utilizing real-time ultrasonic imaging multiple real time high-resolution ultrasonic images with comp ression and noncompression maneuvers of the deep venous system in addition to color doppler imaging w ere performed from the common femoral vein through the proximal calf veins. FINDINGS: Currently there is normal compressibility of the deep venous system from the common femoral vein thro ugh the proximal calf veins. No current evidence of acute thrombosis is identified. Impression: No evidence of deep venous thrombus. ACT 112: Negative or not required by law. Electronically signed by: Beto Taveras M.D. 04/21/2021 7:55 AM
[2021-04-21 08:00] LABS: Lyme Ab IgM w/WB Rflx Equivocal (Negative)
[2021-04-21] MEDS: guaiFENesin 600 MG TABCR PO SCH ×2 (08:13→20:06)
[2021-04-21] MEDS: LORATADINE 10 MG TAB PO SCH (08:13)
[2021-04-21] MEDS: CEROVITE ADV FORMULA TAB PO SCH (08:13)
[2021-04-21] MEDS: CHOLECALCIFEROL 1,000 UNITS 25 MCG TAB PO SCH (08:13)
[2021-04-21] MEDS: MELOXICAM 7.5 MG TAB PO SCH (08:13)
[2021-04-21] MEDS: NYSTATIN SUSP 500,000 U/5 ML UDC PO SCH ×4 (08:13→20:05)
[2021-04-21] MEDS: BENZONATATE 100 MG CAPSULE PO SCH ×3 (08:13→20:05)
[2021-04-21] MEDS: FLUTICASONE/VILANTEROL 200/25MCG 14 PUFFS/INHALER INH SCH (08:14)
[2021-04-21] MEDS: FLUoxetine HCL 20 MG CAP PO SCH (08:14)
[2021-04-21] MEDS ORDERED: AZITHROMYCIN 250 MG TAB PO SCH (09:00)
--- NOTE | 2021-04-21 09:53 | Hospitalist Progress Note ---
Date of Service April 21, 2021 Assessment & Plan (1) Fever: Plan: Continued to have once-twice daily temperature spikes. She has had no significant new complaints. Thus far the following are negative -- 1. blood cx's x 2 sets including a set from her port 2. urine cx 3. legionella urine ag 4. Biofire resp panel (except for COVID portion) 5. CXR without any significant lobar infiltrates or progression of her known COVID-[address] chest/abd/pelvis without other source of fever with exception of her known lymphoma 7. echo - no valvular vegetations 8. TSH wnl (no thyroiditis) 9. recent troponin negative 10. DOpplers LEs negative / 11. Monospot negative No evidence of MIS-A clinically. No meds that would cause drug fever. No sinusitis clinically. No symptoms/signs of meningitis. fevers could be due to lymphoma +/- COVID infection, HOWEVER Lyme IgM is now equivocal, IgG negative SHe does have exposure to ticks in the past, could be indicative of previous infection or acute infection, but will TREAT WITH DOXYCYCLINE x 28 days Plan - -await aspergillus titers -await parvovirus titers, CMV DNA, EBV DNA -Coxsackie/HSV/others are possible but no good test to determine if old vs new infection. -start doxycycline 100mg IV bid for Lyme and convert to po for discharge -dc azithro -Monitor overnight for more fevers -Follow the most recent blood cx's-NGTD If fevers coming down, can discharge tomorrow on 28 day course of doxycycline (doxycycline low risk of adverse effects and benefit of empiric treatment outweights risk; even if old infection, still recommend treatment) (2) Acute respiratory failure with hypoxia: Plan: 2nd to COVID-19 pneumonia. Acute resp failure resolved. Off O2, and she passed her 2-step O2 test as well. She is about 1 month into her illness. There does not appear to be superimposed acute CHF, bacterial superinfection, or VTE. (see #1 above) Fungal infection/atypical infections are possible in the setting of significant immune compromise from her lymphoma & rituximab treatments but felt to be less likely. [id number] aspergillus titers sent. dc azithro in favor of doxy as above for Lyme which would also cover for atypical pneumonitis Her clinical course is one of severe COVID-19 pneumonia in the setting of her lymphoma. Ongoing recovery will likely continue well after discharge. Should have pulmonary f/u post-discharge. I appreciate pulmonary consultation and their recs. Cont tessalon TID. Cont hycodan prn. Cont IS/flutter. Cont proning/positioning techniques. See above re: fever. (3) Pneumonia due to COVID-19 virus: Plan: She just completed a 10-day course of dexamethasone 6mg daily as an outpatient just before admission. She also received IV dexamethasone in the ER. Her CTA chest appears to show typical COVID-19 pneumonia. Obvious fibrosis is not seen. Lobar consolidation is not seen. Procal is negative. Repeat procalcitonin also negative. CRP only mildly elevated at 3-4. Deferring on additional steroids for now. Appreciate [facility] Pulmonary consult/recs. See #2 for other information. Will need pulmonary f/u post-d/c. At discharge plan for xarelto 10mg po daily x 35 days for DVT proph at home. Free voucher given to patient. (4) Pancytopenia: Plan: Her lymphoma is the likely cause. however, COVID-19 infection can contribute to such. TSH noted to be normal. B12/folate normal. Follow cbc. Fortunately the cell counts are acceptable. No neutropenia. (5) Severe protein-calorie malnutrition: Plan: 2nd to COVID-19 infection. Lymphoma also could be contributing. Fortunately appetite has improved while here. Cont supportive care. Added boost. Added MVI. 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 Follows with [facility], Neelam GUILLAUME. Porter-CT this admission appears to show positive treatment response. Fever could be lymphoma related. see #1 above. IgG just shy of 600; obtained at Ms Arias's request. She will f/u on this in clinic. (7) Candidiasis of mouth and esophagus: Plan: 2nd steroids, etc. Improved/resolving. Nystatin liquid - 5cc qid swish/swallow. (8) Abnormal ECG: Plan: EKG showed RBBB and T wave inversions suggestive of inferolateral ischemia. No ischemic symptoms, however. Initial troponin negative. Echo with preserved EF and no wall motion abnormalities. Repeat troponin negative- doubt myocarditis - no symptoms of such, and doubt fever is sign of myocardial involvement. (9) Hyponatremia: Plan: resolved (10) DVT prophylaxis: Plan: lovenox daily while here xarelto x 35 days post-d/c as above Plan: Dispo-likely dc to home tomorrow if fevers resolve Admission and Anticipated Discharge Date Admission Date: April 16, 2021 Subjective Pt feeling better today, no fever since yesterday afternoon but a low grade temp this AM. NO nausea or vomiting, no abd pain, no diarrhea or constipation, no joint pains, no rashes. Still some SOB and cough, remains on RA Tele with NSR rates 80s Review of Systems Review of Systems: All systems reviewed & are unremarkable except as noted in HPI & below Physical Exam Constitutional: WD/WN, vitals as above Eyes: + anicteric sclerae Neck: trachea midline, no thyromegaly Respiratory: normal respiratory effort, lungs clear to auscultation (a few scattered rhonchi) Cardiovascular: RRR, no murmur, no edema Chest (Breasts): Chest: normal inspection of chest Gastrointestinal (Abdomen): normal bowel sounds, soft, nontender, no hepatosplenomegaly Musculoskeletal: Extremities: extremities normal to inspection; no cyanosis and no clubbing no joint effusions Skin: no rashes, warm and dry Neurologic: moves all extremities and awake; no focal motor deficits Psychiatric: A+Ox3, euthymic affect Lymphatic: no lymphedema Results & Data Results & Data ([facility]) Vital Signs (Past 12 Hours) Vital Signs Temp Pulse Pulse Resp BP Pulse Ox 04/21/21 08:14 36.6 C 92 H 18 121/83 91 04/21/21 07:48 81 04/21/21 03:47 37.6 C H 90 22 117/67 93 04/20/21 23:15 74 04/20/21 22:50 37 C 77 18 108/60 95 Laboratory Results 04/21/21 04/21/21 04/21/21 Range/Units 05:19 05:19 05:19 Total Bilirubin 0.3 (0.2-1.0) mg/dl Direct Bilirubin 0.0 (0-0.2) mg/dl AST 24 (13-39) U/L ALT 23 (7-52) U/L Alkaline Phosphatase 63 (34-104) U/L Troponin I < 0.03 (0-0.04) ng/ml Total Protein 6.6 (6.0-8.3) gm/dl Albumin 3.2 L (3.4-5.0) gm/dl IgG (635-1741) mg/dl Lyme Disease IgG Ab Negative (Negative) Lyme IgG (Western Blot) Pending Lyme IgG 18 kDa Band Pending Lyme IgG 23 kDa Band Pending Lyme IgG 28 kDa Band Pending Lyme IgG 30 kDa Band Pending Lyme IgG 39 kDa Band Pending Lyme IgG 41 kDa Band Pending Lyme IgG 45 kDa Band Pending Lyme IgG 58 kDa Band Pending Lyme IgG 66 kDa Band Pending Lyme IgG 93 kDa Band Pending Lyme IgM Ab (WB) Pending Lyme Disease IgM Ab Equivocal A (Negative) Lyme IgM 23 kDa Band Pending Lyme IgM 39 kDa Band Pending Lyme IgM 41 kDa Band Pending Monoscreen Negative (Negative) Urine Legionella Ag 04/20/21 04/18/21 Range/Units 12:36 09:15 Total Bilirubin (0.2-1.0) mg/dl Direct Bilirubin (0-0.2) mg/dl AST (13-39) U/L ALT (7-52) U/L Alkaline Phosphatase (34-104) U/L Troponin I (0-0.04) ng/ml Total Protein (6.0-8.3) gm/dl Albumin (3.4-5.0) gm/dl IgG 562.8 L (635-1741) mg/dl Lyme Disease IgG Ab (Negative) Lyme IgG (Western Blot) Lyme IgG 18 kDa Band Lyme IgG 23 kDa Band Lyme IgG 28 kDa Band Lyme IgG 30 kDa Band Lyme IgG 39 kDa Band Lyme IgG 41 kDa Band Lyme IgG 45 kDa Band Lyme IgG 58 kDa Band Lyme IgG 66 kDa Band Lyme IgG 93 kDa Band Lyme IgM Ab (WB) Lyme Disease IgM Ab (Negative) Lyme IgM 23 kDa Band Lyme IgM 39 kDa Band Lyme IgM 41 kDa Band Monoscreen (Negative) Urine Legionella Ag SEE NOTE PG Care Time/CCT Total # of Minutes Spent Total Time Spent with Patient: Total time spent is greater than 50% in coordination of care (as documented) at patient's floor/unit and/or counseling patient: Coding Level of Care Code 50704 Subseq Hosp Care Lvl 2 Diagnoses Fever R50.9 Acute respiratory failure with hypoxia J96.01 Pneumonia due to COVID-19 virus U07.1; J12.82 Pancytopenia D61.818 Severe protein-calorie malnutrition E43 B-cell lymphoma of intra-abdominal lymph nodes C85.13 Candidiasis of mouth and esophagus B37.81; B37.0 Abnormal ECG R94.31 DVT prophylaxis Z29.9 Hyponatremia E87.1
[2021-04-21] MEDS: DOXYCYCLINE HYCLATE 100 MG in DEXTROSE 5% 100 ML IV SCH ×2 (10:57→20:10)
[2021-04-21] MEDS: ENOXAPARIN INJ 40 MG/0.4 ML SYR SQ SCH (20:06)
[2021-04-21 20:56] LABS: Aspergillus Flavus Negative (Negative); Aspergillus Niger Negative (Negative)
[2021-04-22] MEDS: CHOLECALCIFEROL 1,000 UNITS 25 MCG TAB PO SCH (08:17)
[2021-04-22] MEDS: BENZONATATE 100 MG CAPSULE PO SCH (08:17)
[2021-04-22] MEDS: MELOXICAM 7.5 MG TAB PO SCH (08:17)
[2021-04-22] MEDS: LORATADINE 10 MG TAB PO SCH (08:17)
[2021-04-22] MEDS: FLUoxetine HCL 20 MG CAP PO SCH (08:17)
[2021-04-22] MEDS: guaiFENesin 600 MG TABCR PO SCH (08:17)
[2021-04-22] MEDS: CEROVITE ADV FORMULA TAB PO SCH (08:17)
[2021-04-22] MEDS: NYSTATIN SUSP 500,000 U/5 ML UDC PO SCH (08:17)
[2021-04-22] MEDS: FLUTICASONE/VILANTEROL 200/25MCG 14 PUFFS/INHALER INH SCH (08:18)
[2021-04-22] MEDS: DOXYCYCLINE HYCLATE 100 MG in DEXTROSE 5% 100 ML IV SCH (08:28)
--- NOTE | 2021-04-23 12:32 | Discharge Summary ---
Date of Service April 22, 2021 Admission HPI Per Admitting Provider Patient is a 65 y/o female with PMH of follicular lymphoma diagnosed in 2019 who presents today with generalized weakness over the past three weeks. Patient was diagnosed with COVID-19 on 03/22/21 and since then has had generalized fatigue, SOB, and a persistent cough which has made it very difficult for her to take care of herself at home. She reports a 15 lb weight loss due to lack of appetite. She did see her PCP on 04/05 who prescribed her an inhaler and a course of steroids for 10 days. She said she finished these Friday, 04/14 and had minimal relief of symptoms. Does not complain of fever/chills, headache, nausea, vomiting, abdominal pain, diarrhea, or urinary symptoms such as increased frequency, urgency, dysuria, or hematuria. Patient does follow with [facility], last chemo treatment was 03/18/21. She is currently receiving maintenance therapy with rituximab Q3 months. In ED, vital signs are stable, initially on RA with SaO2 in mid 90s, had gone down to 87% and was placed on 2L NC. Labs remarkable for WBC 3.26, Na 133, otherwise CBC and BMP within normal limits. Initial troponin negative. EKG significant for RBBB as well as some T wave abnormalities possibly suggestive of inferolateral ischemia, no previous EKGs available for comparison. Chest CTA showed moderate multifocal ground glass opacities throughout the lungs consistent with viral pneumonia, no pulmonary emboli or thoracic lymphadenopathy noted. Patient received 1L NS, hydrocodone, and dexamethasone in ED. Hospitalist service was consulted for further evaluation and admission. Principal Diagnosis FEVER Discharge Exam Constitutional: WD/WN, vitals as above Eyes: + anicteric sclerae Neck: trachea midline, no thyromegaly Respiratory: normal respiratory effort, lungs clear to auscultation (a few scattered rhonchi) Cardiovascular: RRR, no murmur, no edema Chest (Breasts): Chest: normal inspection of chest Gastrointestinal (Abdomen): normal bowel sounds, soft, nontender, no hepatosplenomegaly Musculoskeletal: Extremities: extremities normal to inspection; no cyanosis and no clubbing no joint effusions Skin: no rashes, warm and dry Neurologic: moves all extremities and awake; no focal motor deficits Psychiatric: A+Ox3, euthymic affect Lymphatic: no lymphedema Discharge Data Allergies Allergy/AdvReac Type Severity Reaction Status Date / Time No Known Allergies Allergy Verified 04/16/21 12:29 Consultations 04/16/21 14:43 ED Decision to Admit Stat 04/17/21 14:24 Consult Pulmonology Routine Ordered Studies 04/16/21 12:21 CT angio chest PE protocol Stat 04/16/21 20:48 CT abd pelvis oral and IV con Urgent 04/21/21 20:30 US venous doppler LE Routine Hospital Course (1) Fever: Continued to have once-twice daily temperature spikes. She has had no significant new complaints. Thus far the following are negative -- 1. blood cx's x 2 sets including a set from her port 2. urine cx 3. legionella urine ag 4. Biofire resp panel (except for COVID portion) 5. CXR without any significant lobar infiltrates or progression of her known COVID-[address] chest/abd/pelvis without other source of fever with exception of her known lymphoma 7. echo - no valvular vegetations 8. TSH wnl (no thyroiditis) 9. recent troponin negative 10. DOpplers LEs negative 3/ 11. Monospot negative No evidence of MIS-A clinically. No meds that would cause drug fever. No sinusitis clinically. No symptoms/signs of meningitis. fevers could be due to lymphoma +/- COVID infection, HOWEVER Lyme IgM is now equivocal, IgG negative SHe does have exposure to ticks in the past, could be indicative of previous infection or acute infection, but will TREAT WITH DOXYCYCLINE x 28 days Plan - -Negative aspergillus titers -Negative parvovirus titers, CMV DNA, EBV DNA: EXCEPT FOR pARVOVIRUS iGg. -Coxsackie/HSV/others are possible but no good test to determine if old vs new infection. -started doxycycline 100mg IV bid for Lyme and convert to po for discharge -dc azithro -Monitor overnight for more fevers -Follow the most recent blood cx's-NGTD -Fevers improved, discharge on 28 days of doxy. >5 BANDS WERE POSITIVE ON WESTERN BLOT. (2) Acute respiratory failure with hypoxia: 2nd to COVID-19 pneumonia. Acute resp failure resolved. Off O2, and she passed her 2-step O2 test as well. She is about 1 month into her illness. There does not appear to be superimposed acute CHF, bacterial superinfection, or VTE. (see #1 above) Fungal infection/atypical infections are possible in the setting of significant immune compromise from her lymphoma & rituximab treatments but felt to be less likely. [id number] aspergillus titers sent. rosie arita in favor of doxy as above for Lyme which would also cover for atypical pneumonitis Her clinical course is one of severe COVID-19 pneumonia in the setting of her lymphoma. Ongoing recovery will likely continue well after discharge. Should have pulmonary f/u post-discharge. I appreciate pulmonary consultation and their recs. Cont tessalon TID. Cont hycodan prn. Cont IS/flutter. Cont proning/positioning techniques. See above re: fever. (3) Pneumonia due to COVID-19 virus: She just completed a 10-day course of dexamethasone 6mg daily as an outpatient just before admission. She also received IV dexamethasone in the ER. Her CTA chest appears to show typical COVID-19 pneumonia. Obvious fibrosis is not seen. Lobar consolidation is not seen. Procal is negative. Repeat procalcitonin also negative. CRP only mildly elevated at 3-4. Deferring on additional steroids for now. Appreciate [facility] Pulmonary consult/recs. See #2 for other information. Will need pulmonary f/u post-d/c. At discharge plan for xarelto 10mg po daily x 35 days for DVT proph at home. Free voucher given to patient. (4) Pancytopenia: Her lymphoma is the likely cause. however, COVID-19 infection can contribute to such. TSH noted to be normal. B12/folate normal. Follow cbc. Fortunately the cell counts are acceptable. No neutropenia. (5) Severe protein-calorie malnutrition: 2nd to COVID-19 infection. Lymphoma also could be contributing. Fortunately appetite has improved while here. Cont supportive care. Added boost. Added MVI. 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 Follows with [facility], Neelam GUILLAUME. Porter-CT this admission appears to show positive treatment response. Fever could be lymphoma related. see #1 above. IgG just shy of 600; obtained at Ms Arias's request. She will f/u on this in clinic. (7) Candidiasis of mouth and esophagus: 2nd steroids, etc. Improved/resolving. Nystatin liquid - 5cc qid swish/swallow. (8) Abnormal ECG: EKG showed RBBB and T wave inversions suggestive of inferolateral ischemia. No ischemic symptoms, however. Initial troponin negative. Echo with preserved EF and no wall motion abnormalities. Repeat troponin negative- doubt myocarditis - no symptoms of such, and doubt fever is sign of myocardial involvement. (9) Hyponatremia: resolved (10) DVT prophylaxis: lovenox daily while here xarelto x 35 days post-d/c as above Total Time Total Time Spent Total Time Spent (In Minutes): 35 Discharge Plan Discharge Items Patient Disposition: Home - Self-Care Reason For Visit: GENERALIZED WEAKNESS Discharge Diagnosis: 1. Resolving COVID-19 pneumonia 2. Lymphoma - currently undergoing treatment at [facility] 3. Recurrent fevers - suspected to be from #2; extensive work-up for other infectious causes negative; some possibility is that it is COVID-related as well 4. Thrush (yeast infection of mouth) Activity: As commented below Activity Comment: gradually increase your activities over the next 1-2 weeks Sexual Activity: Wait until after follow-up appointment Exercise/Sports: Wait until after follow-up appointment Driving/Machine Use: May resume when NOT using hydrocodone cough syrup and you are feeling well Non-emergency contact: Primary Care Provider and Oncologist Call non-emergency contact if: you have any medication questions, your symptoms worsen and your temperature is above 101.5 Follow-up/Referrals: Jose Angel Tinoco MD [Physician] - (2 weeks - any [place] pulmonary provider; dx - COVID-19 pneumonia) Neelam Arias CRNP [Nurse Practitioner] - (1-2 weeks) Jesús Love DO [Primary Care Provider] - (within 1 week) Diet: Regular Addtl Attending Provider Instructions: Mrs Chery, You were hospitalized for COVID-19 pneumonia. You had been ill with COVID for 3-4 weeks and had worsening symptoms. While here you underwent CT of the chest showing your COVID pneumonia. We also saw your lymphoma on the scans of the abdomen but the lymph nodes were smaller than previous. The CT chest did NOT show blood clots of the lungs. With positioning techniques, incentive spirometry/flutter valve, cough medications, and some IV fluids your symptoms improved and you overall felt better. Your eating has improved. [facility] saw you in consult and felt that all of your CT chest findings were due to COVID itself and not some other process (bacterial, fungal, etc). We checked you for the latter and those tests to date are negative. During your stay you did have recurrent fevers 1-2 times each day. We performed blood cultures several times and urine culture all of which are negative. A respiratory panel done on 04/20/21 did not show the presence of any other viruses beyond the COVID. These fevers are likely from your lymphoma. However, the fevers could theoretically still be from your resolving COVID illness. I spoke with Ms Hugo who is aware of your illness and your hospital stay. Recommendations - 1. Xarelto blood thinner - 10mg once daily x 35 days starting 04/21/21. Be sure to bring the voucher to the pharmacy - it will be free with such. See instructions below regarding the Xarelto. This medication is to help reduce the chances of DVT blood clots while recovering from your COVID. 2. hydrocodone/homatroptine cough syrup - 5cc every 6 hours as needed for cough. Do not drink alcohol with this medication as it contains narcotic. Do not drive while taking this medication. It can cause you to be sleep. It potentially could cause constipation as well. 3. also for cough - ok to take with #2 above - tessalon pearles, 100mg-200mg every 8 hours as needed. 4. Breo inhaler -- 1 puff daily. Rinse your mouth with water after its use and spit (do not swallow the water). 5. nystatin swish - 5cc four times daily x 7 days. Swish and swallow this medication. It is to treat the yeast in your mouth. 6. It is ok to rest in the next few weeks during your recovery. It is important to listen to your body and not "over do it." 7. Focus on good nutrition and hydration during your recovery. 8. Continue your incentive spirometry & flutter valve over the next 1-2 weeks. 9. Continue to lay on your belly ("prone") when resting in bed. This helps your breathing. 10. Purchase a pulse oximeter. This device goes on your finger and measures your oxygen levels. Check your oxygen levels 1-2 times each day. If you are co nsistently over 90% these are acceptable readings. If you are consistently less than 90% please seek medical attention. 11. Check your temperatures twice a day (morning, and at night). If you have ANY concerns about your temperatures please speak with Dr Love or Ms Arias. You may continue to have these for a period of time. If you are feeling poorly and the temperatures are 101.5 or higher consistently please seek medical attention. 12. It is likely going to take a few more weeks to recover from your COVID. You may have mild shortness of breath with exertion, fatigue, etc as your illness winds down. Follow-up - see separate section Return to [facility] if - * you have bleeding from any location as listed below * you have worsening shortness of breath or chest pains * you have oxygen levels with the pulse oximeter <90% * you have persistent fevers over 101.5 degrees * any other concerns It was my pleasure caring for you! Continue to feel better, Dr Dubois. We will also add doxycyline as you were having fevers. It appears your fevers have improved, with this medication. will recommend to continue a 28 day course. You will need 27 more days. Please take a dose tonight. Pending Studies at Discharge: Yes Studies:: Blood tests for viruses, Blood test for fungas/yeast Stand-Alone Forms: My [facility], Smoking Cessation Medications and DC Order Prescriptions: New nystatin 100,000 unit/mL Suspension 5 ml PO QID 7 Days Qty: 150 RF: 0 benzonatate 100 mg Capsule 100 - 200 mg PO TID PRN (Reason: cough) Qty: 30 RF: 0 hydrocodone-homatropine [Hydromet] 5-1.5 mg/5 mL Syrup 5 ml PO Q6H PRN (Reason: cough) Qty: 120 RF: 0 Breo Ellipta 200-25 mcg/dose Blister With Device 1 puff inhalation DAILY Qty: 1 RF: 2 Xarelto 10 mg tablet 10 mg PO DAILY 35 Days Qty: 35 RF: 0 doxycycline monohydrate 100 mg capsule 100 mg PO BID 27 Days Qty: 54 RF: 0 Continued clonazepam [Klonopin] 0.5 mg tablet 0.5 mg PO QPM RF: 0 sumatriptan succinate 25 mg tablet 25 mg PO Q2H PRN (Reason: Headache) RF: 0 eletriptan [Relpax] 20 mg tablet 20 mg PO Q2H PRN (Reason: Headache) RF: 0 multivitamin Tablet 1 tab PO QAM RF: 0 loratadine 10 mg Tablet 10 mg PO QAM RF: 0 cholecalciferol (vitamin D3) [Vitamin D3] 25 mcg (1,000 unit) Tablet 25 mcg PO QAM RF: 0 niacin 100 mg Tablet 100 mg PO DAILY RF: 0 fluoxetine 40 mg capsule 40 mg PO QAM RF: 0 Discontinued Vivlodex 10 mg capsule 10 mg PO QAM RF: 0 Discharge Orders: Discharge Order (Routine); Ordered 04/22/21 Ordered By: Remberto Crain Admission Data Admit Date/Time: 04/16/21 15:48 Attending Provider: Remberto Crain Admit Provider: Bea Ott Primary Care Provider: Jesús Love Other Providers: Bea Ott ; Jose Angel Tinoco Other Interventions: Discharge Summary Assessment (RN) Last Done: 04/22/21 10:23 Coding Level of Care Code D/C DAY MANAGEMENT >30 MINS Diagnoses Fever R50.9 Acute respiratory failure with hypoxia J96.01 Pneumonia due to COVID-19 virus U07.1; J12.82 Pancytopenia D61.818 Severe protein-calorie malnutrition E43 B-cell lymphoma of intra-abdominal lymph nodes C85.13 Candidiasis of mouth and esophagus B37.81; B37.0 Abnormal ECG R94.31 Hyponatremia E87.1 DVT prophylaxis Z29.9
[2021-04-23 21:27] LABS: CMV DNA Qnt Real Time PCR Not Detected; CMV DNA Quant PCR Not Detected log IU/mL; EBV DNA Quant PCR <200 copies/mL (<200); EBV DNA Quant Source Plasma; Parvovirus IgG 5.2 (<0.9); Parvovirus IgM 0.1 (<0.9)
[2021-04-25 01:42] LABS: 18KDIGG Band NON-REACTIVE; 23KDIGG Band REACTIVE; 23KDIGM Band NON-REACTIVE; 28KDIGG Band NON-REACTIVE; 30KDIGG Band NON-REACTIVE; 39KDIGG Band REACTIVE; 39KDIGM Band NON-REACTIVE; 41KDIGG Band REACTIVE; 41KDIGM Band NON-REACTIVE; 45KDIGG Band REACTIVE; 58KDIGG Band REACTIVE; 66KDIGG Band NON-REACTIVE; 93KDIGG Band REACTIVE; Lyme Antibodies, WB IgG POSITIVE (NEGATIVE); Lyme Antibodies, WB IgM NEGATIVE (NEGATIVE)
== END 2021-04-22 11:15 | disposition home or self-care (01) | DRG 177 ==
LOC: ED 11:11 → EDINP 15:48 → SUATTDRO 15:48 → 2E 17:27